=== PATIENT | female | born 1945 | race Caucasian/White ===

== ENCOUNTER 2019-05-02 10:23 | Outpatient (CLI) | payer MEDICARE ==
--- NOTE | 2019-05-02 12:17 | MRI ---
MRI BRAIN WITH AND WITHOUT CONTRAST MRI IACs WITHOUT CONTRAST: Date: 05/02/19 INDICATION: Right-sided hearing loss. No prior imaging comparison available. FINDINGS: Ventricular system is normal in size. There is no acute territorial infarction, mass effect, or midli ne shift. Minimal chronic ischemic disease of the cerebral white matter is present. Thin section heavily T2-weighted imaging, as well as postcontrast imaging performed through the CP an gle cisterns bilaterally, which reveal no evidence of mass or pathologic enhancement. There is a curv ilinear region of enhancement of the right CP angle cistern approximating porus acousticus favoring a small vascular loop. There is mild asymmetric high-riding left jugular bulb. No evidence of pathologic intra-axial enhancement. IMPRESSION: 1. No acute intracranial abnormalities. 2. No evidence of mass or pathologic enhancement of either CP angle cistern. POS: [facility]
== END 2019-05-02 10:24 | disposition home or self-care (01) ==
LOC: BICMRI 10:23
PROVIDERS: ATTEND Otolaryngology Otolaryngic Allergy
DX: H90.A31 Mixed conductive and sensorineural hearing loss, unilateral, right ear with restricted hearing on the contralateral side (principal); H90.A22 Sensorineural hearing loss, unilateral, left ear, with restricted hearing on the contralateral side; H69.83 Other specified disorders of Eustachian tube, bilateral
CPT/HCPCS: 70553; 82565

== ENCOUNTER 2019-10-10 10:00 | Emergency (ER) | payer MEDICARE ==
[2019-10-10] MEDS ORDERED: Ondansetron PF 4 MG/2 ML Vial ONE (10:18)
[2019-10-10] MEDS ORDERED: Ciprofloxacin 500 MG TAB ONE (10:18)
[2019-10-10] MEDS ORDERED: metroNIDAZOLE 500 MG/100 ML BAG ONE (10:19)
[2019-10-10 10:49] LABS: #Basophils 0.1 thou/uL (0.0-0.2); #Eosinphils 0.4 thou/uL (0.0-0.7); #Lymphocytes 2.7 thou/uL (1.20-3.40); #Monocytes 0.8 thou/uL (0.11-0.59); #Neutrophils 4.2 thou/uL (1.40-6.50); %Basophils 0.8 % (0.0-1.0); %Eosinophils 5.5 % (0.0-10.0); %Lymphocytes 32.7 % (21.0-51.0); %Monocytes 9.2 % (0.0-10.0); %Neutrophils 51.8 % (42.0-75.0); Hemoglobin 12.6 g/dL (12.0-16.0); Mean Corpuscular HGB CONC 33.4 g/dL (32.0-36.0); Mean Corpuscular Hemoglobin 30.8 pg (27.0-31.0); Mean Corpuscular Volume 92.3 fL (78.0-98.0); Mean Platelet Volume 7.2 fL (7.4-10.4); Platelet Count 313 thou/uL (130-400); Red Blood Cell (RBC) Count 4.08 mill/uL (4.20-5.40); White Blood Cell (WBC) Count 8.1 thou/uL (4.8-10.8)
[2019-10-10 11:02] LABS: ALT (SGPT) 18 U/L (8-55); AST (SGOT) 25 U/L (5-34); Albumin 4.4 g/dL (3.4-4.8); Alkaline Phosphatase 46 U/L (40-110); Anion Gap 14 mmol/L (10-20); BUN (Urea Nitrogen) 12 mg/dL (9.8-20.1); Bilirubin, Total 0.3 mg/dL (0.2-1.2); Calc. Creatinine Clearance 0 mL/min (70-130); Calcium 10.1 mg/dL (7.8-10.44); Carbon Dioxide 23 mmol/L (23-31); Chloride 105 mmol/L (98-107); Estimated GFR-MDRD 49; Globulin 3.7 g/dL (2.4-3.5); Glucose 122 mg/dL (83-110); Lipase 52 U/L (8-78); Potassium 4.6 mmol/L (3.5-5.1); Protein, Total 8.1 g/dL (6.0-8.3); Sodium 137 mmol/L (136-145)
--- NOTE | 2019-10-10 11:59 | CT ---
CT ABDOMEN AND PELVIS PERFORMED WITH IV CONTRAST ENHANCEMENT: Date: 10/10/2019 HISTORY: Abdominal pain. FINDINGS: The lung bases are clear of any infiltrates. There is fluid-filled distention of the distal esophagus . This would raise the possibility of some type of achalasia type change. The liver shows evidence fo r fatty change. No focal masses. Spleen is within normal limits. Pancreas and gallbladder regions veronica ear unremarkable. Right and left adrenal glands are normal. Right and left kidneys are normal in size. Contrast is with in both collecting systems and ureters. This was related to that there was holdup after the initial i njection there was an IV leak which had to be fixed and so some of the contrast was administered satya ier than typically seen. There is slight prominence to both the right and left ureters to the level o f the pelvic brim, at which point they tapered to a more normal caliber. I do not see any signs of an y mass. The bladder is mildly distended. There is no significant periaortic or mesenteric adenopathy. Colonic diverticulosis mainly confined to the distal descending and sigmoid colon region. No definit e signs of any diverticulitis type change. There is some minimal haziness to the fat adjacent to the sigmoid colon. I feel this is more likely chronic. No free fluid demonstrated. No pelvic lymphadenopa thy or mass. Appendix is normal. There are some prominent vessels adjacent to the ascending colon. IMPRESSION: 1. Fatty changes of liver. 2. Colonic diverticulosis without any definitive evidence for diverticulitis as discussed above. 3. Air fluid level within the distended distal esophagus. This raises the possibility of possibly so me achalasia type change. POS: [facility]
[2019-10-10] MEDS ORDERED: Iopamidol-370 76% 500 ML 1 ML ONE (15:53)
== END 2019-10-10 12:41 | disposition home or self-care (01) ==
LOC: ERS 10:00
DX: K57.32 Diverticulitis of large intestine without perforation or abscess without bleeding (principal); E11.9 Type 2 diabetes mellitus without complications; I10 Essential (primary) hypertension
CPT/HCPCS: 74177; 80053; 83690; 85025; 96361; 96365; 96375; J2405; Q9967

== ENCOUNTER 2019-11-25 13:38 | Observation (INO) | payer MEDICARE ==
--- NOTE | 2019-11-25 14:33 | CT ---
Exam: Head CT without contrast HISTORY: Memory loss. Headache. Pain. COMPARISON: none FINDINGS: Hemorrhage: No intraparenchymal hemorrhage or extra-axial hematoma. Brain parenchyma: Cortical guillaume-white matter differentiation is preserved. No mass effect or midline shift. Basilar cisterns are patent. Ventricular system: Ventricles and sulci are patent and symmetric. Calvarium: Intact. Sinuses and mastoid air cells: Adequate aeration. IMPRESSION: No acute intracranial process.
--- NOTE | 2019-11-25 14:52 | RAD ---
PORTABLE CHEST: Date: 11/25/2019 HISTORY: Altered mental status. Syncope. FINDINGS: Heart size and mediastinum are within normal limits. Lungs appear clear of any focal infiltrative pro cess. No significant bony findings. IMPRESSION: No active intrathoracic disease. POS: [facility]
[2019-11-25 15:12] LABS: #Basophils 0.1 thou/uL (0.0-0.2); #Eosinphils 0.2 thou/uL (0.0-0.7); #Monocytes 0.6 thou/uL (0.11-0.59); #Neutrophils 5.4 thou/uL (1.40-6.50); %Basophils 1.1 % (0.0-1.0); %Eosinophils 2.5 % (0.0-10.0); %Neutrophils 65.5 % (42.0-75.0); Hemoglobin 13.7 g/dL (12.0-16.0); Mean Corpuscular HGB CONC 33.2 g/dL (32.0-36.0); Mean Corpuscular Hemoglobin 30.7 pg (27.0-31.0); Mean Corpuscular Volume 92.4 fL (78.0-98.0); Mean Platelet Volume 7.8 fL (7.4-10.4); Platelet Count 336 thou/uL (130-400); RBC Distribution Width 13.2 % (11.5-14.5); Red Blood Cell (RBC) Count 4.45 mill/uL (4.20-5.40); White Blood Cell (WBC) Count 8.3 thou/uL (4.8-10.8)
[2019-11-25] MEDS ORDERED: diphenhydrAMINE 50 MG/ML VIAL ONE (15:15)
[2019-11-25] MEDS ORDERED: Metoclopramide HCl 10 MG/2 ML VIAL ONE (15:15)
[2019-11-25 15:35] LABS: ALT (SGPT) 19 U/L (8-55); AST (SGOT) 27 U/L (5-34); Albumin 4.7 g/dL (3.4-4.8); Alkaline Phosphatase 48 U/L (40-110); Anion Gap 16 mmol/L (10-20); BUN (Urea Nitrogen) 12 mg/dL (9.8-20.1); Bilirubin, Total 0.5 mg/dL (0.2-1.2); Calc. Creatinine Clearance 0 mL/min (70-130); Calcium 10.8 mg/dL (7.8-10.44); Carbon Dioxide 21 mmol/L (23-31); Chloride 101 mmol/L (98-107); Estimated GFR-MDRD 43; Globulin 3.8 g/dL (2.4-3.5); Glucose 91 mg/dL (83-110); Potassium 4.6 mmol/L (3.5-5.1); Protein, Total 8.5 g/dL (6.0-8.3); Sodium 133 mmol/L (136-145)
[2019-11-25 16:07] LABS: Bilirubin Negative (Negative); Blood, Urine Negative (Negative); Clarity Clear (Clear); Glucose, Urine (Dipstick) Normal (Negative); Leukocyte Negative Leu/uL (Negative); Nitrite Negative (Negative); Protein, Urine (Dipstick) 10 mg/dL (Neg-Trace); Urobilinogen Normal mg/dL (Less than 2)
[2019-11-25] MEDS ORDERED: Aspirin 325 MG TAB ONE (17:21)
[2019-11-25] MEDS ORDERED: D5 1/2 NS 500 ML IV SCH (18:45)
[2019-11-25] MEDS ORDERED: Acetaminophen 650 MG Suppository PR PRN (18:45)
[2019-11-25] MEDS ORDERED: Acetaminophen 325 MG TAB PO PRN (18:45)
[2019-11-25] MEDS ORDERED: Melatonin 3 MG TAB PO PRN (18:46)
[2019-11-25] MEDS ORDERED: Dextrose 50% Abboject 50 ML SYRINGE SLOW IVP PRN (18:47)
[2019-11-25] MEDS ORDERED: HumaLOG 300 UNITS/3 ML VIAL SC PRN ×2 (18:47)
[2019-11-25] MEDS ORDERED: Dextrose 5% in Water 1,000 ML IV PRN (18:47)
[2019-11-25] MEDS ORDERED: Fioricet 325/50/40 mg Tablet PO SCH (19:15)
[2019-11-25 19:32] LABS: Lactic Acid 2.2 mmol/L (0.5-2.2)
--- NOTE | 2019-11-25 20:05 | HP ---
TIME OF ASSESSMENT: 1700 hours. PRIMARY CARE PHYSICIAN: Out of town. CHIEF COMPLAINT: Confusion. HISTORY OF PRESENT ILLNESS: Ms. Umaña is a pleasant 74-year-old woman, who presented to the emergency department due to an episode of confusion. The patient apparently had a moment of confusion this morning, when she realized she could not recall phone numbers. Her family states she is usually very good with numbers. The symptoms resolved within an hour and she had no other associated symptoms. No slurred speech. No headache. No dizziness. No extremity numbness or weakness. No ataxia. She does report feeling a bit under the weather and having a reduced appetite. States she recently took care of her grand children, who were unwell with a viral illness. Denies any constitutional symptoms such as cough, runny nose, or sore throat. No chest pain or shortness of breath. No nausea, vomiting, or abdominal pain. No changes with her urine and no changes with her stools. The patient apparently had recurring confusion later in the day that lasted longer and did check her glucose on both occasions. Her glucose in the morning was 114 and in the afternoon when her symptoms recurred was 79. The family insisted she come into the Emergency Department. Since arriving to the ED, her symptoms have fully resolved. She does report a persistent aching sensation surrounding her left eye with no blurred vision or double vision. States it is 2/10 in severity and feels like a headache. Denies any history of migraines or headaches. Of note, the patient does report having chills at the moment and states that she cannot get warm despite how many blankets have been given in the ED. Her temp was 98.8 and she states this is high for her. She usually runs in the 97 range. ED COURSE: In the Emergency Department, the patient underwent an EKG that showed a normal sinus rhythm with a heart rate of 83, complete right bundle-branch block. She was given Benadryl, metoclopramide, and aspirin as well as 500 mL of normal saline. Neuro exam was unremarkable. She did undergo a CT head imaging showing no acute intracranial process. She had a chest x-ray done showing no active intrathoracic disease. A urinalysis showed trace ketones and was otherwise negative. Her labs showed a normal full blood count with a low sodium of 133. Potassium 4.6, anion gap 16, BUN 12, creatinine 1.24, and GFR 43. Renal function is elevated from baseline. Calcium was 10.8. LFTs unremarkable. Troponin negative. PAST MEDICAL HISTORY: 1. Type 2 diabetes mellitus. 2. Hypertension. 3. Hypothyroidism. 4. Lupus. 5. Diverticulitis. PAST SURGICAL HISTORY: Tubal ligation. SOCIAL HISTORY: The patient lives at home with her grandson. Denies any tobacco use, alcohol consumption, or illicit drug use. ALLERGIES: 1. BACTRIM. 2. KEFLEX. CURRENT MEDICATIONS: 1. Janumet. 2. Benazepril. 3. Glipizide. 4. Levothyroxine. PHYSICAL EXAMINATION: GENERAL: The patient appears well developed, well nourished, is in no acute distress. VITAL SIGNS: Temperature 98.8, pulse 96, blood pressure 123/66, respirations 18, and O2 saturation 98% on room on room air. HEENT: Normocephalic and atraumatic. Pupils are equal, round, and reactive to light. Extraocular movements intact. Oropharynx is clear. NECK: Supple. LUNGS: Clear to auscultation bilaterally without any wheezes, rales, or rhonchi. CARDIAC: Regular rate and rhythm. ABDOMEN: Soft, nontender, and nondistended. Normoactive bowel sounds present. No guarding or rigidity. No renal angle tenderness. EXTREMITIES: No lower leg swelling or edema. No calf tenderness. Peripheral pulses strong and equal bilaterally. SKIN: Warm and dry. NEUROLOGIC: Alert and oriented x3. Facial movements normal. Facial sensation intact. Power 5/5 in all limbs. No neuro deficits on exam. INVESTIGATIONS: As mentioned above in HPI. IMPRESSION AND PLAN: Ms. Umaña is a pleasant 74-year-old woman, who presents with complaints of recurring confusion, chills, and reduced appetite. She is being admitted for management of the following. 1. Transient ischemic attack workup. The patient's CT imaging of the head has showed no intracranial abnormalities. She had no associated neuro deficits on exam. The patient was told she might get an MRI. It is unlikely her symptoms are due to cerebrovascular accident/transient ischemic attack, but given the patient and family's concerns, we will place a consultation to Neuro and if any further imaging advised such as MRI, this can be ordered. The patient is back to baseline at present and is alert and oriented x4. Able to recall multiple phone numbers and address. We will check a lipid panel in the morning. We will continue NIH testing every shift. We will complete a dysphagia screening at bedside. 2. Dehydration. The patient states her appetite has been reduced since she has been feeling slightly well and recently exposed to a viral illness by her grand children. We will provide gentle hydration and monitor renal function. We will obtain orthostatic blood pressures. 3. Ocular migraine. The patient reports some discomfort around the left eye with no visual disturbances. It is possible she is experiencing an ocular migraine, perhaps exacerbated by dehydration. Discomfort is currently 2/10 in severity. We will give a dose of Fioricet. 4. Hypercalcemia. Calcium level mildly elevated at 10.8. We will reassess after fluids given. We will check magnesium as well. 5. Diabetes mellitus. The patient with reduced oral intake. Therefore, we will hold her regular medications. We will monitor glucose and cover with a sliding scale. Fluids will consist of D5 half-normal saline 1 L at 50 mL an hour. 6. Hypertension. Monitor blood pressure and resume home medications once verified. 7. Gastrointestinal prophylaxis with famotidine. 8. Deep venous thrombosis prophylaxis. Physical Therapy/Occupational Therapy consulted. 9. Code status full. Surrogate decision maker is her son, Nirav Umaña. Case was discussed with attending, who agrees with plan of care as described above. Job ID: [id number]
[2019-11-25] MEDS ORDERED: Famotidine/PF 20 mg/2ml Vial SLOW IVP SCH (21:00)
[2019-11-25] MEDS ORDERED: Dextrose 5 %-0.45 % NaCl 1,000 ML IV SCH (22:15)
[2019-11-25 23:51] VITALS: BMI 33.9
[2019-11-26 06:23] LABS: #Eosinphils 0.4 thou/uL (0.0-0.7); #Lymphocytes 2.3 thou/uL (1.20-3.40); #Monocytes 0.7 thou/uL (0.11-0.59); #Neutrophils 2.8 thou/uL (1.40-6.50); %Basophils 0.6 % (0.0-1.0); %Eosinophils 6.2 % (0.0-10.0); %Lymphocytes 37.8 % (21.0-51.0); %Monocytes 10.4 % (0.0-10.0); Hemoglobin 12.5 g/dL (12.0-16.0); Mean Corpuscular HGB CONC 33.4 g/dL (32.0-36.0); Mean Corpuscular Volume 92.8 fL (78.0-98.0); Mean Platelet Volume 7.7 fL (7.4-10.4); Platelet Count 276 thou/uL (130-400); RBC Distribution Width 13.2 % (11.5-14.5); Red Blood Cell (RBC) Count 4.02 mill/uL (4.20-5.40); White Blood Cell (WBC) Count 6.2 thou/uL (4.8-10.8)
[2019-11-26 06:42] LABS: Anion Gap 13 mmol/L (10-20); BUN (Urea Nitrogen) 11 mg/dL (9.8-20.1); Calc. Creatinine Clearance 59 mL/min (70-130); Calcium 9.7 mg/dL (7.8-10.44); Carbon Dioxide 21 mmol/L (23-31); Chloride 106 mmol/L (98-107); Estimated GFR-MDRD 53; Glucose 98 mg/dL (83-110); Sodium 136 mmol/L (136-145)
[2019-11-26] MEDS ORDERED: Aspirin 81 mg Enteric Coated Tablet PO SCH (09:00)
--- NOTE | 2019-11-26 10:30 | CON ---
DATE OF CONSULTATION: 11/26/2019 CONSULTING PHYSICIAN: Hospitalist Service. IMPRESSION: 1. Transient confusion of uncertain etiology. 2. Diabetes. 3. Hypertension. PLAN: 1. Begin aspirin and a statin. 2. MRI of the brain. 3. The patient can be discharged home. HISTORY OF PRESENT ILLNESS: Ms. Umaña is a 74-year-old white female with history of hypertension and diabetes. She had 2 brief episodes, where she could not recall familiar phone numbers. There was no other associated symptom other than some low-grade headache. Her CT of the brain was negative. Her lab work was all unremarkable. Her blood sugars were in normal range during these episodes. She denies any other past neurologic history. PAST HISTORY: As listed above. ALLERGIES: CEPHALEXIN, SULFA. SOCIAL HISTORY: No tobacco use. FAMILY HISTORY: Noncontributory. MEDICATIONS: List reviewed. REVIEW OF SYSTEMS: Ten-system review of systems is otherwise negative. PHYSICAL EXAMINATION: VITAL SIGNS: Blood pressure 144/77, pulse 79, respirations 18, and temperature 97.9. HEENT: Pupils are equal and reactive. Conjunctivae are clear. Oropharynx clear. NECK: Supple. EXTREMITIES: No cyanosis or edema. NEUROLOGIC: She is alert and appropriate. Her speech is fluent and clear. She has no focal deficits. LABORATORY DATA: EKG shows a sinus rhythm. SUMMARY: This is a 74-year-old woman with some vascular risk factors, who presents with a very vague transient difficulty recalling phone numbers. Given the brevity of the events, I do not think we are going to see anything on MRI. I agree with continuing aspirin and a statin for good measure. Job ID: [id number]
[2019-11-26 11:44] VITALS: BP 109/54; TEMP 99.3
--- NOTE | 2019-11-26 11:47 | ULT ---
EXAM: Carotid vascular duplex with color and spectral Doppler imaging: HISTORY: TIA COMPARISON: None FINDINGS: Very mild intimal thickening Right ICA: PSV: 56 cm/s EDV: 16 cm/s ICA/CCA ratio: 0.8 Left ICA: PSV: 63 cm/s EDV: 15.6 cm/s ICA/CCA ratio: 0.7 Antegrade flow is seen in both vertebral arteries.. IMPRESSION: No evidence for hemodynamically significant ICA stenosis Mild intimal thickening evidence for carotid artery atherosclerotic disease.
--- NOTE | 2019-11-26 12:24 | MRI ---
EXAM: Brain MRI Without contrast: HISTORY: TIA, memory loss, headache COMPARISON: None FINDINGS: Multiplanar multisequence MRI examination of the brain is performed. The ventricles are within normal limits of size shape and position. No mass or midline shift. No evidence for intra or extra-axial hemorrhage. No evidence for abnormal restricted diffusion. No evidence for acute infarct. Normal-appearing flow voids are noted. The extracranial soft tissues and calvarial marrow signal appear within normal limits. Visualized sinuses and mastoids are unremarkable. IMPRESSION: No significant acute intracranial process. No mass or bleed. No acute infarct.
--- NOTE | 2019-11-26 12:54 | PDOC.HOSPP ---
- Subjective Encounter Date: 11/26/19 Encounter Time: 12:52 Subjective: Ms. Umaña was seen today in follow-up of altered mental status. She says her symptoms have completely resolved. No new complaints. - Objective Vital Signs & Weight: Vital Signs (12 hours) Temp Pulse Resp BP Pulse Ox 11/26/19 11:43 99.3 F 72 21 H 109/54 L 95 11/26/19 08:00 98.0 F 78 20 117/60 99 11/26/19 04:00 98.2 F 63 18 124/79 95 Weight Weight 168 lb I&O: 11/25/19 11/26/19 11/27/19 06:59 06:59 06:59 Intake Total 360 948 Balance 360 948 Result Diagrams: 11/26/19 05:07 11/26/19 05:07 Additional Labs: Accuchecks 11/26/19 11/26/19 11/25/19 11:12 06:17 14:03 POC Glucose 146 H 108 79 Hospitalist ROS - Medication Medications: Active Medications Generic Name Dose Route Start Last Admin Trade Name Freq PRN Reason Stop Dose Admin Acetaminophen 650 mg 11/25/19 18:45 11/26/19 08:59 Tylenol PO 650 mg Q4H PRN Administration Headache/Fever/Mild Pain (1-3) Aspirin 81 mg 11/26/19 09:00 11/26/19 08:59 Ecotrin PO 81 mg DAILY CASSY Administration Dextrose/Sodium Chloride 1,000 mls @ 50 mls/hr 11/25/19 22:15 11/25/19 22:12 D5 1/2 Ns IV 1,000 mls .Q20H CASSY Administration - Exam Eye: PERRL, anicteric sclera Heart: RRR, no murmur, no gallops, no rubs, normal peripheral pulses Respiratory: CTAB, no wheezes, no rales, no ronchi, normal chest expansion, no tachypnea, normal percussion Gastrointestinal: soft, non-tender, non-distended, normal bowel sounds, no palpable masses, no hepatomegaly Extremities: no cyanosis, no edema Hosp A/P (1) TIA (transient ischemic attack) Code(s): G45.9 - TRANSIENT CEREBRAL ISCHEMIC ATTACK, UNSPECIFIED Status: Acute (2) Diabetes mellitus type 2 in nonobese Code(s): E11.9 - TYPE 2 DIABETES MELLITUS WITHOUT COMPLICATIONS Status: Chronic - Plan * TIA- stable for discharge * Will add a ow dose statin and aspirin * Stable for discharge home.
[2019-11-26 13:17] LABS: Cardiac Risk 3.8 (Less than 4.5)
[2019-11-26] MEDS ORDERED: Famotidine/PF 20 mg/2ml Vial SLOW IVP SCH (21:00)
--- NOTE | 2019-11-28 10:47 | DIS ---
DATE OF ADMISSION: 11/25/2019 DATE OF DISCHARGE: 11/26/2019 PRIMARY CARE PHYSICIAN: Dr. Thomas, [facility]. DISCHARGE DISPOSITION: Home. DISCHARGE DIAGNOSES: 1. Transient ischemic attack. 2. Diabetes mellitus type 2. 3. Possible hypoglycemia. 4. Hypertension. 5. Hypothyroidism. 6. Lupus. 7. Diverticulitis. DISCHARGE MEDICATIONS: Include 1. Aspirin 81 mg daily. 2. Pravastatin 20 mg at bedtime. 3. Metformin. 4. Janumet mg twice a day. 5. Levothyroxine 75 mcg p.o. daily. 6. Glipizide 2.5 mg 1/2 tablet daily. 7. Lotensin 20 mg a day. IMAGING STUDIES: During the hospital stay, the patient had a CT scan of the brain showing no acute intracranial process. Had an MRI of the brain, also negative for any mass or infarct. Also, had bilateral carotid Dopplers showing no evidence of any significant flow-limiting disease. CODE STATUS: Full code. ALLERGIES: TO CEPHALEXIN, SULFA, AND TRIMETHOPRIM. HOSPITAL COURSE: Ms. Umaña is a pleasant 74-year-old female, who was admitted to the hospital after having difficulty recognizing numbers. This was concerning for possible TIA. She was brought in the hospital and had an MRI, which was negative, and also carotid Dopplers. She had not been taking a statin recently and for this reason, pravastatin will be added. She said she had difficulty with Livalo in the past. Also, it was noted that she could potentially have been hypoglycemic. Her son says that her blood sugar was in the low normal region when this happened around in the 70s. This was after she had eaten a Pop-Tart in which it would be expected for blood sugar to be much higher. Therefore, she was instructed to monitor her blood sugars and try to eat something with more protein in the mornings if she is hurried. She will also need to follow up with her primary care physician in approximately 1 week. Job ID: [id number]
--- NOTE | 2019-11-28 14:25 | DIS ---
DATE OF ADMISSION: 11/25/2019 DATE OF DISCHARGE: 11/26/2019 PRIMARY CARE PHYSICIAN: Dr. Thomas. DISCHARGE DISPOSITION: Home. PRIMARY DISCHARGE DIAGNOSES: 1. Probable transient ischemic attack. 2. Diabetes mellitus. 3. Hypothyroidism. 4. History of lupus. DISCHARGE MEDICATIONS: 1. Aspirin 81 mg p.o. daily. 2. Pravastatin 20 mg at bedtime. 3. Januvia. 4. Metformin mg twice a day. 5. Levothyroxine 75 mcg p.o. daily. 6. Glucotrol daily. 7. Lotensin 20 mg daily. IMAGING DURING HOSPITAL STAY: The patient had a CT scan of the brain showing no acute process. Also, had an MRI of the brain with no acute intracranial process. No bleed or infarct as well as bilateral carotid Dopplers, which were negative for any hemodynamically significant stenosis. CODE STATUS: Full code. ALLERGIES: TO CEPHALEXIN, SULFAMETHOXAZOLE, AND BACTRIM. HOSPITAL COURSE: Ms. Umaña is a pleasant 74-year-old female, who was admitted or placed in observation after she had an episode of difficulty with word finding. It was very transient and short-lived. However, she is very good with numbers and as a result, there was considerable concern. She came to the ER for evaluation, where she was placed in observation. She was seen by Neurology the following day. MRI was ordered, which was negative and also carotid Dopplers were also done showing no flow-limiting disease. It is possible that this was either TIA or could have been related to an episode of hypoglycemia. She says that her blood sugar was in the lower normal range when it happens, but this was after she had eaten a Pop-Tart. It has been recommended that she have a little bit of protein in the morning with breakfast and she a low-dose aspirin and statin will be added. She can follow up with Dr. Thomas for the echocardiogram and also close outpatient followup in general. Job ID: [id number]
== END 2019-11-26 14:59 | disposition home or self-care (01) ==
LOC: ERS 13:38 → 2SE 19:30
PROVIDERS: ADMIT Internal Medicine; ATTEND Internal Medicine
DX: G45.9 Transient cerebral ischemic attack, unspecified (principal); E11.9 Type 2 diabetes mellitus without complications; I10 Essential (primary) hypertension; E03.9 Hypothyroidism, unspecified; M32.9 Systemic lupus erythematosus, unspecified; K57.92 Diverticulitis of intestine, part unspecified, without perforation or abscess without bleeding; I45.10 Unspecified right bundle-branch block; E86.0 Dehydration; G43.809 Other migraine, not intractable, without status migrainosus; E83.52 Hypercalcemia; Z79.84 Long term (current) use of oral hypoglycemic drugs; Z79.899 Other long term (current) drug therapy; Z88.1 Allergy status to other antibiotic agents; Z88.2 Allergy status to sulfonamides
CPT/HCPCS: 36415; 36416; 70450; 70551; 71045; 80048; 80053; 80061; 81003; 83605; 83735; 84145; 84443; 84484; 85025; 87086; 87804; 93005; 93880; 96361; 96365; 96375; G0378; J1200; J2765; S0028

== ENCOUNTER 2020-12-08 13:53 | Inpatient (IN) | payer MEDICARE ==
[~2020-12-08 13:53] MED LIST: Iopamidol-370 76% 500 ML 1 ML ONE
[2020-12-08] MEDS ORDERED: Nitroglycerin 2% Ointment 1 INCH/1 GM Packet ONE (14:17)
[2020-12-08 14:29] LABS: #Eosinphils 0.3 thou/uL (0.0-0.7); #Lymphocytes 2.5 thou/uL (1.20-3.40); #Monocytes 0.7 thou/uL (0.11-0.59); #Neutrophils 5.4 thou/uL (1.40-6.50); %Basophils 0.4 % (0.0-1.0); %Eosinophils 3.7 % (0.0-10.0); %Lymphocytes 28.1 % (21.0-51.0); %Monocytes 7.9 % (0.0-10.0); Hemoglobin 13.8 g/dL (12.0-16.0); Mean Corpuscular HGB CONC 33.6 g/dL (32.0-36.0); Mean Corpuscular Hemoglobin 34.2 pg (27.0-31.0); Mean Platelet Volume 7.1 fL (7.4-10.4); Platelet Count 349 thou/uL (130-400); RBC Distribution Width 13.6 % (11.5-14.5); Red Blood Cell (RBC) Count 4.04 mill/uL (4.20-5.40)
[2020-12-08 15:19] LABS: ALT (SGPT) 12 U/L (8-55); AST (SGOT) 21 U/L (5-34); Albumin 4.9 g/dL (3.4-4.8); Alkaline Phosphatase 52 U/L (40-110); Anion Gap 21 mmol/L (10-20); BUN (Urea Nitrogen) 13 mg/dL (9.8-20.1); Bilirubin, Total 0.4 mg/dL (0.2-1.2); Calc. Creatinine Clearance 0 mL/min (70-130); Calcium 10.4 mg/dL (7.8-10.44); Carbon Dioxide 17 mmol/L (23-31); Chloride 103 mmol/L (98-107); Globulin 3.8 g/dL (2.4-3.5); Glucose 125 mg/dL (83-110); Lipase 71 U/L (8-78); Magnesium 1.3 mg/dL (1.6-2.6); Potassium 4.9 mmol/L (3.5-5.1); Protein, Total 8.7 g/dL (5.8-8.1); Sodium 136 mmol/L (136-145)
[2020-12-08 15:24] LABS: Bacteria/HPF None Seen HPF (None Seen); Bilirubin Negative (Negative); Blood, Urine 1+ (Negative); Clarity Clear (Clear); Glucose, Urine (Dipstick) Normal (Negative); Ketone, Urine Negative (Negative); Leukocyte Negative Leu/uL (Negative); Nitrite Negative (Negative); Protein, Urine (Dipstick) 100 mg/dL (Neg-Trace); RBC/HPF 0-3 HPF (0-3); Specific Gravity, Urine 1.011 (1.002-1.036); Squamous Epithelial None Seen HPF (0-3); Urobilinogen Normal mg/dL (Less than 2); WBC/HPF 0-3 HPF (0-3); pH, Urine 5.5 (5.0-9.0)
[2020-12-08 15:48] LABS: CKMB 6.9 ng/mL (0-6.6)
[2020-12-08] MEDS ORDERED: Magnesium 2 GM/50 ML BAG (IN WATER) ONE (15:52)
[2020-12-08] MEDS ORDERED: Magnesium 2 GM/50 ML 2 GM in Premix Bag 1 BAG IVPB SCH (16:00)
[2020-12-08] MEDS ORDERED: Ondansetron PF 4 MG/2 ML Vial ONE (16:01)
[2020-12-08] MEDS ORDERED: Morphine 2 MG/ML VIAL ONE (16:01)
[2020-12-08] MEDS ORDERED: Fentanyl 100 MCG/2 ML VIAL ONE (16:25)
[2020-12-08] MEDS ORDERED: Enoxaparin Sodium 80 MG/0.8 ML SYRINGE SC SCH (16:30)
[2020-12-08] MEDS ORDERED: Enoxaparin Sodium 80 MG/0.8 ML SYRINGE ONE (16:56)
[2020-12-08] MEDS ORDERED: Dextrose 5% in Water 1,000 ML IV PRN (17:34)
[2020-12-08] MEDS ORDERED: HumaLOG 300 UNITS/3 ML VIAL SC PRN (17:34)
[2020-12-08] MEDS ORDERED: Dextrose 50% Abboject 50 ML SYRINGE SLOW IVP PRN (17:34)
[2020-12-08] MEDS ORDERED: Morphine 2 MG/ML VIAL SLOW IVP PRN (17:43)
[2020-12-08 18:17] LABS: Troponin I 2.507 ng/mL (< 0.028)
[2020-12-08 20:55] LABS: Critical Call Chem Troponin I RESULT DECREASING
[2020-12-08 21:18] VITALS: BMI 32.2
[2020-12-09 02:09] LABS: SARS-CoV-2 PCR by NAA Not Detected (NotDetected)
[2020-12-09] MEDS ORDERED: Nitroglycerin 0.4 MG TAB (25 Tab Bottle) SL PRN (04:47)
[2020-12-09 04:52] LABS: #Basophils 0.1 thou/uL (0.0-0.2); #Eosinphils 0.3 thou/uL (0.0-0.7); #Monocytes 0.8 thou/uL (0.11-0.59); %Basophils 1.1 % (0.0-1.0); %Eosinophils 3.7 % (0.0-10.0); %Lymphocytes 42.9 % (21.0-51.0); %Monocytes 9.1 % (0.0-10.0); %Neutrophils 43.3 % (42.0-75.0); Hemoglobin 12.1 g/dL (12.0-16.0); Mean Corpuscular HGB CONC 33.7 g/dL (32.0-36.0); Mean Corpuscular Hemoglobin 34.1 pg (27.0-31.0); Mean Platelet Volume 7.2 fL (7.4-10.4); Platelet Count 305 thou/uL (130-400); RBC Distribution Width 13.6 % (11.5-14.5); Red Blood Cell (RBC) Count 3.56 mill/uL (4.20-5.40); White Blood Cell (WBC) Count 9.2 thou/uL (4.8-10.8)
[2020-12-09 05:17] LABS: Troponin I 2.638 ng/mL (< 0.028)
[2020-12-09] MEDS ORDERED: Enoxaparin Sodium 40 MG/0.4 ML SYRINGE SC ONE (05:34)
[2020-12-09 06:01] LABS: Anion Gap 17 mmol/L (10-20); BUN (Urea Nitrogen) 13 mg/dL (9.8-20.1); Calc. Creatinine Clearance 54 mL/min (70-130); Calcium 9.5 mg/dL (7.8-10.44); Carbon Dioxide 18 mmol/L (23-31); Cardiac Risk 3.9 (Less than 4.5); Chloride 107 mmol/L (98-107); Cholesterol 193 mg/dl (< 200 Desired); Glucose 129 mg/dL (83-110); HDL Cholesterol 49 mg/dL (>60 Neg Risk); LDL Cholesterol, Calculated 88 mg/dL; Magnesium 1.8 mg/dL (1.6-2.6); Potassium 5.1 mmol/L (3.5-5.1); Sodium 137 mmol/L (136-145); Triglycerides 281 mg/dL (Less than 150)
[2020-12-09] MEDS: Aspirin 325 mg Enteric Coated Tablet PO SCH (08:04)
[2020-12-09] MEDS ORDERED: Lisinopril 10 MG TAB PO SCH (09:00)
[2020-12-09] MEDS: Famotidine 20 MG TAB PO SCH (09:50)
[2020-12-09] MEDS ORDERED: Communication Order-Pharmacy FS SCH (10:00)
[2020-12-09] MEDS ORDERED: Enoxaparin Sodium 60 MG/0.6 ML SYRINGE SC SCH (14:00)
[2020-12-09] MEDS: Nitroglycerin 2% Ointment 1 INCH/1 GM Packet TOP SCH (17:01)
[2020-12-09] MEDS: Metoprolol Tartrate 25 MG TAB PO SCH (20:42)
[2020-12-09] MEDS ORDERED: Atorvastatin Calcium 40 MG TAB PO SCH (21:00)
[2020-12-10] MEDS: Nitroglycerin 2% Ointment 1 INCH/1 GM Packet TOP SCH ×4 (00:15→18:32)
[2020-12-10] MEDS: Metoprolol Tartrate 25 MG TAB PO SCH ×2 (05:56→21:53)
[2020-12-10] MEDS: Levothyroxine Sodium 75 MCG TAB PO SCH (05:57)
[2020-12-10] MEDS: Aspirin 325 mg Enteric Coated Tablet PO SCH (05:57)
[2020-12-10] MEDS: Fenofibrate 48 MG TAB PO SCH (05:57)
[2020-12-10] MEDS: Famotidine 20 MG TAB PO SCH (05:57)
[2020-12-10] MEDS ORDERED: Midazolam HCl 2 mg/2 ml Vial ONE (07:07)
[2020-12-10] MEDS ORDERED: Fentanyl 100 MCG/2 ML VIAL ONE (07:07)
[2020-12-10] MEDS ORDERED: Nitroglycerin 100MG/250ML BOT 250 ML ONE (07:22)
[2020-12-10] MEDS ORDERED: Adenosine 6 MG/2 ML VIAL ONE (07:22)
[2020-12-10] MEDS ORDERED: Verapamil 5 MG/2 ML VIAL ONE (07:22)
[2020-12-10] MEDS ORDERED: Heparin 10,000 UNITS/ 10 ML VIAL ONE (07:38)
[2020-12-10] MEDS ORDERED: Acetaminophen/Codeine 30-300mg Tablet PO PRN (07:52)
[2020-12-10] MEDS ORDERED: Milk Of Magnesia 30 ML UDCUP PO PRN (07:52)
[2020-12-10] MEDS ORDERED: traMADol HCl 50 MG TAB PO PRN (07:52)
[2020-12-10] MEDS ORDERED: Zolpidem Tartrate 5 MG TAB PO PRN (07:52)
[2020-12-10] MEDS ORDERED: Sodium Chloride 0.9% 1,000 ML IV SCH (08:00)
[2020-12-10] MEDS ORDERED: Clopidogrel Bisulfate 300 MG TAB ONE (08:07)
[2020-12-10] MEDS: Aspirin Chewable 81 MG TAB PO SCH (11:44)
[2020-12-10] MEDS ORDERED: Iopamidol 370 76% 100 ML VIAL ONE (11:44)
[2020-12-10] MEDS ORDERED: Iopamidol 370 76% 50 ML VIAL FS ONE (11:44)
[2020-12-10] MEDS: Clopidogrel Bisulfate 75 MG TAB PO SCH (11:44)
[2020-12-10] MEDS ORDERED: Lorazepam 2 MG/ML VIAL ONE (16:09)
[2020-12-10] MEDS ORDERED: Lorazepam 2 MG/ML VIAL SLOW IVP PRN (16:10)
[2020-12-10 20:23] LABS: #Basophils 0.1 thou/uL (0.0-0.2); #Lymphocytes 1.8 thou/uL (1.20-3.40); #Monocytes 0.9 thou/uL (0.11-0.59); #Neutrophils 7.8 thou/uL (1.40-6.50); %Basophils 1.1 % (0.0-1.0); %Eosinophils 0.4 % (0.0-10.0); %Lymphocytes 17.2 % (21.0-51.0); %Monocytes 8.1 % (0.0-10.0); %Neutrophils 73.3 % (42.0-75.0); Hemoglobin 12.6 g/dL (12.0-16.0); Mean Corpuscular HGB CONC 32.4 g/dL (32.0-36.0); Mean Corpuscular Hemoglobin 32.8 pg (27.0-31.0); Mean Platelet Volume 7.1 fL (7.4-10.4); Platelet Count 311 thou/uL (130-400); RBC Distribution Width 13.6 % (11.5-14.5); Red Blood Cell (RBC) Count 3.83 mill/uL (4.20-5.40); White Blood Cell (WBC) Count 10.6 thou/uL (4.8-10.8)
[2020-12-10 20:44] LABS: ALT (SGPT) 10 U/L (8-55); AST (SGOT) 23 U/L (5-34); Albumin 4.1 g/dL (3.4-4.8); Alkaline Phosphatase 46 U/L (40-110); Anion Gap 19 mmol/L (10-20); BUN (Urea Nitrogen) 7 mg/dL (9.8-20.1); Bilirubin, Total 0.4 mg/dL (0.2-1.2); Calc. Creatinine Clearance 108 mL/min (70-130); Calcium 9.6 mg/dL (7.8-10.44); Carbon Dioxide 17 mmol/L (23-31); Chloride 102 mmol/L (98-107); Globulin 3.6 g/dL (2.4-3.5); Glucose 165 mg/dL (83-110); Magnesium 1.1 mg/dL (1.6-2.6); Potassium 4.5 mmol/L (3.5-5.1); Protein, Total 7.7 g/dL (5.8-8.1); Sodium 133 mmol/L (136-145)
[2020-12-10] MEDS ORDERED: diphenhydrAMINE 50 MG/ML VIAL IVP SCH (20:45)
[2020-12-10 21:18] LABS: Bacteria/HPF None Seen HPF (None Seen); Bilirubin Negative (Negative); Blood, Urine Trace (Negative); Clarity Clear (Clear); Glucose, Urine (Dipstick) 50 mg/dL (Negative); Ketone, Urine Trace mg/dL (Negative); Leukocyte Negative Leu/uL (Negative); Nitrite Negative (Negative); Protein, Urine (Dipstick) 70 mg/dL (Neg-Trace); RBC/HPF 0-3 HPF (0-3); Specific Gravity, Urine 1.022 (1.002-1.036); Squamous Epithelial None Seen HPF (0-3); Urobilinogen Normal mg/dL (Less than 2); WBC/HPF 0-3 HPF (0-3); pH, Urine 6.5 (5.0-9.0)
[2020-12-10 21:20] LABS: Urine Culture Reflex No No
[2020-12-10] MEDS: Atorvastatin Calcium 40 MG TAB PO SCH (21:52)
[2020-12-11] MEDS: Nitroglycerin 2% Ointment 1 INCH/1 GM Packet TOP SCH ×5 (00:02→23:45)
[2020-12-11] MEDS ORDERED: Acetaminophen 650 MG Suppository PR PRN (04:06)
[2020-12-11] MEDS: Piperacillin/Tazobactam 3.375 GM in Sodium Chloride 0.9% 100 ML IVPB SCH ×4 (04:24→23:45)
[2020-12-11 04:45] LABS: #Monocytes 1.1 thou/uL (0.11-0.59); #Neutrophils 8.2 thou/uL (1.40-6.50); %Basophils 0.2 % (0.0-1.0); %Eosinophils 0.1 % (0.0-10.0); %Lymphocytes 17.3 % (21.0-51.0); %Monocytes 9.6 % (0.0-10.0); %Neutrophils 72.7 % (42.0-75.0); Hemoglobin 12.6 g/dL (12.0-16.0); Mean Corpuscular HGB CONC 34.3 g/dL (32.0-36.0); Mean Corpuscular Hemoglobin 34.4 pg (27.0-31.0); Mean Platelet Volume 7.2 fL (7.4-10.4); Platelet Count 306 thou/uL (130-400); RBC Distribution Width 13.6 % (11.5-14.5); Red Blood Cell (RBC) Count 3.68 mill/uL (4.20-5.40); White Blood Cell (WBC) Count 11.3 thou/uL (4.8-10.8)
[2020-12-11] MEDS: Vancomycin 1 GM in Premix Bag 1 BAG IVPB SCH ×2 (05:07→16:20)
[2020-12-11] MEDS: Levothyroxine Sodium 75 MCG TAB PO SCH ×2 (05:09→08:39)
[2020-12-11 05:13] LABS: ALT (SGPT) 11 U/L (8-55); AST (SGOT) 26 U/L (5-34); Albumin 4.2 g/dL (3.4-4.8); Alkaline Phosphatase 37 U/L (40-110); Anion Gap 19 mmol/L (10-20); BUN (Urea Nitrogen) 12 mg/dL (9.8-20.1); Bilirubin, Total 0.6 mg/dL (0.2-1.2); Calc. Creatinine Clearance 48 mL/min (70-130); Calcium 9.8 mg/dL (7.8-10.44); Carbon Dioxide 17 mmol/L (23-31); Chloride 99 mmol/L (98-107); Globulin 3.8 g/dL (2.4-3.5); Glucose 177 mg/dL (83-110); Potassium 4.2 mmol/L (3.5-5.1); Sodium 131 mmol/L (136-145)
[2020-12-11] MEDS: Clopidogrel Bisulfate 75 MG TAB PO SCH (08:31)
[2020-12-11] MEDS: Aspirin Chewable 81 MG TAB PO SCH (08:31)
[2020-12-11] MEDS: Metoprolol Tartrate 25 MG TAB PO SCH ×2 (08:31→21:25)
[2020-12-11] MEDS: Fenofibrate 48 MG TAB PO SCH (08:31)
[2020-12-11] MEDS: Famotidine 20 MG TAB PO SCH (08:32)
[2020-12-11] MEDS ORDERED: Lisinopril 5 MG TAB PO SCH (09:00)
[2020-12-11] MEDS ORDERED: Sodium Chloride 0.9% 1,000 ML IV SCH (09:15)
[2020-12-11 09:44] LABS: Hemoglobin A1c 5.4 % (4.0-6.0)
[2020-12-11 10:24] LABS: Thyroid Stimulating Hormone 0.9327 uIU/mL (0.35-4.94)
[2020-12-11 11:00] LABS: Bilirubin Small (Negative); Blood, Urine Large (Negative); Glucose, Urine (Dipstick) Negative (Negative); Ketone, Urine Trace mg/dL (Negative); Leukocyte Negative (Negative); Nitrite Negative (Negative); Protein, Urine (Dipstick) > or equal to 300 mg/dL (Neg-Trace); Urobilinogen 0.2 mg/dL (Less than 2); pH, Urine 5.5 (5.0-9.0)
[2020-12-11 11:05] LABS: Clarity Cloudy (Clear)
[2020-12-11 11:06] LABS: Specific Gravity, Urine 1.035 (1.002-1.036)
[2020-12-11 11:08] LABS: Bacteria/HPF 1+ HPF (None Seen); WBC/HPF 0-3 HPF (0-3)
[2020-12-11 12:54] LABS: Creatinine, Urine 306.56 mg/dL (47-110)
[2020-12-11] MEDS ORDERED: hydrALAZINE 20 MG/ML VIAL SLOW IVP PRN (20:44)
[2020-12-11] MEDS: Atorvastatin Calcium 40 MG TAB PO SCH (21:25)
[2020-12-12] MEDS: Vancomycin 1 GM in Premix Bag 1 BAG IVPB SCH (04:19)
[2020-12-12] MEDS: Piperacillin/Tazobactam 3.375 GM in Sodium Chloride 0.9% 100 ML IVPB SCH ×2 (05:38→11:05)
[2020-12-12] MEDS: Nitroglycerin 2% Ointment 1 INCH/1 GM Packet TOP SCH ×4 (05:39→20:49)
[2020-12-12] MEDS: Levothyroxine Sodium 75 MCG TAB PO SCH (05:39)
[2020-12-12] MEDS: Cyanocobalamin (Vitamin B-12) 1,000 MCG TAB PO SCH (09:01)
[2020-12-12] MEDS: Cholecalciferol 1,000 UNITS (25 MCG) TAB PO SCH (09:01)
[2020-12-12] MEDS: Aspirin Chewable 81 MG TAB PO SCH (09:01)
[2020-12-12] MEDS: Clopidogrel Bisulfate 75 MG TAB PO SCH (09:01)
[2020-12-12] MEDS: Fenofibrate 48 MG TAB PO SCH (09:01)
[2020-12-12] MEDS: Famotidine 20 MG TAB PO SCH (09:01)
[2020-12-12] MEDS: Metoprolol Tartrate 25 MG TAB PO SCH ×2 (09:02→20:48)
[2020-12-12 09:53] LABS: #Basophils 0.1 thou/uL (0.0-0.2); #Eosinphils 0.2 thou/uL (0.0-0.7); #Lymphocytes 2.3 thou/uL (1.20-3.40); #Monocytes 1.2 thou/uL (0.11-0.59); %Basophils 0.6 % (0.0-1.0); %Lymphocytes 26.4 % (21.0-51.0); %Monocytes 13.3 % (0.0-10.0); %Neutrophils 57.6 % (42.0-75.0); Hemoglobin 12.4 g/dL (12.0-16.0); Mean Corpuscular HGB CONC 33.3 g/dL (32.0-36.0); Mean Corpuscular Hemoglobin 33.6 pg (27.0-31.0); Mean Platelet Volume 7.2 fL (7.4-10.4); Platelet Count 245 thou/uL (130-400); RBC Distribution Width 13.7 % (11.5-14.5); Red Blood Cell (RBC) Count 3.69 mill/uL (4.20-5.40); White Blood Cell (WBC) Count 8.7 thou/uL (4.8-10.8)
[2020-12-12 10:12] LABS: Anion Gap 17 mmol/L (10-20); BUN (Urea Nitrogen) 19 mg/dL (9.8-20.1); Calc. Creatinine Clearance 47 mL/min (70-130); Calcium 8.8 mg/dL (7.8-10.44); Carbon Dioxide 16 mmol/L (23-31); Chloride 104 mmol/L (98-107); Glucose 192 mg/dL (83-110); Potassium 3.9 mmol/L (3.5-5.1); Sodium 133 mmol/L (136-145)
[2020-12-12 16:32] LABS: Vancomycin, Trough 12.4 ug/mL
[2020-12-12] MEDS: Atorvastatin Calcium 40 MG TAB PO SCH (20:48)
[2020-12-13 03:42] LABS: #Basophils 0.1 thou/uL (0.0-0.2); #Eosinphils 0.5 thou/uL (0.0-0.7); #Lymphocytes 2.3 thou/uL (1.20-3.40); #Monocytes 0.7 thou/uL (0.11-0.59); #Neutrophils 3.6 thou/uL (1.40-6.50); %Basophils 0.7 % (0.0-1.0); %Lymphocytes 31.7 % (21.0-51.0); %Monocytes 10.3 % (0.0-10.0); %Neutrophils 50.2 % (42.0-75.0); Hemoglobin 11.4 g/dL (12.0-16.0); Mean Corpuscular HGB CONC 34.6 g/dL (32.0-36.0); Mean Corpuscular Hemoglobin 35.2 pg (27.0-31.0); Mean Platelet Volume 7.5 fL (7.4-10.4); Platelet Count 186 thou/uL (130-400); RBC Distribution Width 13.7 % (11.5-14.5); Red Blood Cell (RBC) Count 3.24 mill/uL (4.20-5.40); White Blood Cell (WBC) Count 7.1 thou/uL (4.8-10.8)
[2020-12-13 03:59] LABS: Anion Gap 15 mmol/L (10-20); BUN (Urea Nitrogen) 16 mg/dL (9.8-20.1); Calc. Creatinine Clearance 59 mL/min (70-130); Calcium 8.5 mg/dL (7.8-10.44); Carbon Dioxide 15 mmol/L (23-31); Chloride 110 mmol/L (98-107); Glucose 133 mg/dL (83-110); Potassium 3.6 mmol/L (3.5-5.1); Sodium 136 mmol/L (136-145)
[2020-12-13] MEDS: Levothyroxine Sodium 75 MCG TAB PO SCH (06:24)
[2020-12-13] MEDS: Nitroglycerin 2% Ointment 1 INCH/1 GM Packet TOP SCH ×2 (06:24→12:52)
[2020-12-13] MEDS: Cholecalciferol 1,000 UNITS (25 MCG) TAB PO SCH (09:52)
[2020-12-13] MEDS: Clopidogrel Bisulfate 75 MG TAB PO SCH (09:53)
[2020-12-13] MEDS: Cyanocobalamin (Vitamin B-12) 1,000 MCG TAB PO SCH (09:53)
[2020-12-13] MEDS: Fenofibrate 48 MG TAB PO SCH (09:53)
[2020-12-13] MEDS: Metoprolol Tartrate 25 MG TAB PO SCH (09:53)
[2020-12-13] MEDS: Famotidine 20 MG TAB PO SCH (09:54)
[2020-12-13] MEDS: Aspirin Chewable 81 MG TAB PO SCH (09:54)
[2020-12-13 13:23] VITALS: BP 113/54; TEMP 98.1
[2020-12-13] MEDS ORDERED: Loperamide HCl 1 MG/7.5 ML UDCUP PO PRN (15:24)
== END 2020-12-13 17:45 | disposition home health service (06) | DRG 246 ==
LOC: ERS 13:53 → 2NO 16:56
PROVIDERS: ADMIT Internal Medicine; ATTEND Internal Medicine
PROC: B2111ZZ Fluoroscopy of Multiple Coronary Arteries using Low Osmolar Contrast (ICD-10-PCS; principal; 2020-12-10)
PROC: 027034Z Dilation of Coronary Artery, One Artery with Drug-eluting Intraluminal Device, Percutaneous Approach (ICD-10-PCS; 2020-12-10)
PROC: B2151ZZ Fluoroscopy of Left Heart using Low Osmolar Contrast (ICD-10-PCS; 2020-12-10)
PROC: 4A023N7 Measurement of Cardiac Sampling and Pressure, Left Heart, Percutaneous Approach (ICD-10-PCS; 2020-12-10)
DX: I21.4 Non-ST elevation (NSTEMI) myocardial infarction (principal); I63.9 Cerebral infarction, unspecified; N17.9 Acute kidney failure, unspecified; R65.10 Systemic inflammatory response syndrome (SIRS) of non-infectious origin without acute organ dysfunction; G81.91 Hemiplegia, unspecified affecting right dominant side; E11.9 Type 2 diabetes mellitus without complications; E03.9 Hypothyroidism, unspecified; E78.5 Hyperlipidemia, unspecified; I25.10 Atherosclerotic heart disease of native coronary artery without angina pectoris; I25.5 Ischemic cardiomyopathy; Z88.1 Allergy status to other antibiotic agents; I10 Essential (primary) hypertension; Z88.2 Allergy status to sulfonamides; Z98.51 Tubal ligation status; Z79.82 Long term (current) use of aspirin; Z79.899 Other long term (current) drug therapy; Z79.890 Hormone replacement therapy; Z86.73 Personal history of transient ischemic attack (TIA), and cerebral infarction without residual deficits; Z20.822 Contact with and (suspected) exposure to COVID-19
CPT/HCPCS: 36415; 36416; 70450; 70544; 70551; 71045; 71275; 76770; 76942; 80048; 80053; 80061; 80202; 81001; 81003; 81015; 82140; 82306; 82553; 82570; 82607; 82746; 83036; 83690; 83735; 84300; 84443; 84484; 85025; 85347; 85379; 87040; 87086; 87635; 92928; 93005; 93010; 93306; 93458; 93798; 93880; 95712; 95819; 95957; 96365; 96372; 96375; 99152; 99153; C1874; C9600; J0153; J1200; J1644; J1650; J2060; J2250; J2270; J2405; J2543; J3010; J3370; J3475; J3490; Q9967; U0003; U0005

== ENCOUNTER 2021-01-22 13:25 | Emergency (ER) | payer MEDICARE ==
[2021-01-22 14:39] LABS: #Eosinphils 0.1 thou/uL (0.0-0.7); #Lymphocytes 1.4 thou/uL (1.20-3.40); #Monocytes 0.8 thou/uL (0.11-0.59); #Neutrophils 5.4 thou/uL (1.40-6.50); %Basophils 0.2 % (0.0-1.0); %Eosinophils 1.1 % (0.0-10.0); %Lymphocytes 17.8 % (21.0-51.0); %Monocytes 10.6 % (0.0-10.0); %Neutrophils 70.2 % (42.0-75.0); Hemoglobin 12.7 g/dL (12.0-16.0); Mean Corpuscular HGB CONC 32.2 g/dL (32.0-36.0); Mean Corpuscular Hemoglobin 31.4 pg (27.0-31.0); Mean Corpuscular Volume 97.6 fL (78.0-98.0); Mean Platelet Volume 7.1 fL (7.4-10.4); Platelet Count 389 thou/uL (130-400); RBC Distribution Width 13.3 % (11.5-14.5); Red Blood Cell (RBC) Count 4.03 mill/uL (4.20-5.40); White Blood Cell (WBC) Count 7.7 thou/uL (4.8-10.8)
[2021-01-22 15:03] LABS: ALT (SGPT) 13 U/L (8-55); AST (SGOT) 19 U/L (5-34); Albumin 3.9 g/dL (3.4-4.8); Alkaline Phosphatase 33 U/L (40-110); Anion Gap 14 mmol/L (10-20); BUN (Urea Nitrogen) 20 mg/dL (9.8-20.1); Bilirubin, Total 0.5 mg/dL (0.2-1.2); Calc. Creatinine Clearance 0 mL/min (70-130); Calcium 9.7 mg/dL (7.8-10.44); Carbon Dioxide 18 mmol/L (23-31); Chloride 103 mmol/L (98-107); Globulin 3.5 g/dL (2.4-3.5); Glucose 132 mg/dL (83-110); Lipase 25 U/L (8-78); Protein, Total 7.4 g/dL (5.8-8.1); Sodium 131 mmol/L (136-145)
[2021-01-22] MEDS ORDERED: Pantoprazole 40 MG VIAL ONE (15:09)
[2021-01-22] MEDS ORDERED: Metoclopramide HCl 10 MG/2 ML VIAL ONE (15:09)
[2021-01-22] MEDS ORDERED: Ondansetron PF 4 MG/2 ML Vial ONE (15:11)
[2021-01-22 16:42] LABS: Bilirubin Negative (Negative); Blood, Urine Trace (Negative); Clarity Clear (Clear); Glucose, Urine (Dipstick) Normal (Negative); Ketone, Urine Negative (Negative); Leukocyte 75 Leu/uL (Negative); Nitrite Negative (Negative); Protein, Urine (Dipstick) Negative (Neg-Trace); RBC/HPF 0-3 HPF (0-3); Specific Gravity, Urine 1.017 (1.002-1.036); Squamous Epithelial 0-3 HPF (0-3); Urobilinogen Normal mg/dL (Less than 2); WBC/HPF 0-3 HPF (0-3)
[2021-01-22 16:43] LABS: Bacteria/HPF Rare-Few HPF (None Seen)
== END 2021-01-22 17:14 | disposition home or self-care (01) ==
LOC: ERS 13:25
DX: R11.2 Nausea with vomiting, unspecified (principal); R19.7 Diarrhea, unspecified; E11.9 Type 2 diabetes mellitus without complications; I10 Essential (primary) hypertension; E03.9 Hypothyroidism, unspecified
CPT/HCPCS: 71045; 80053; 81003; 81015; 83690; 84484; 85025; 87086; 93005; 96365; 96375; C9113; J2405; J2765

== ENCOUNTER 2021-02-02 08:12 | Inpatient (IN) | payer MEDICARE ==
[2021-02-02 08:47] LABS: #Lymphocytes 1.2 thou/uL (1.20-3.40); #Monocytes 0.4 thou/uL (0.11-0.59); #Neutrophils 3.6 thou/uL (1.40-6.50); %Eosinophils 0.1 % (0.0-10.0); %Lymphocytes 23.3 % (21.0-51.0); %Monocytes 7.1 % (0.0-10.0); %Neutrophils 69.6 % (42.0-75.0); Hemoglobin 11.1 g/dL (12.0-16.0); Mean Corpuscular Hemoglobin 30.6 pg (27.0-31.0); Mean Corpuscular Volume 95.5 fL (78.0-98.0); Mean Platelet Volume 7.3 fL (7.4-10.4); Platelet Count 206 thou/uL (130-400); RBC Distribution Width 13.4 % (11.5-14.5); Red Blood Cell (RBC) Count 3.63 mill/uL (4.20-5.40); White Blood Cell (WBC) Count 5.2 thou/uL (4.8-10.8)
[2021-02-02 09:07] LABS: ALT (SGPT) 14 U/L (8-55); AST (SGOT) 37 U/L (5-34); Albumin 3.4 g/dL (3.4-4.8); Alkaline Phosphatase 33 U/L (40-110); Anion Gap 14 mmol/L (10-20); BUN (Urea Nitrogen) 11 mg/dL (9.8-20.1); Bilirubin, Total 0.4 mg/dL (0.2-1.2); Calc. Creatinine Clearance 0 mL/min (70-130); Calcium 8.1 mg/dL (7.8-10.44); Carbon Dioxide 18 mmol/L (23-31); Chloride 100 mmol/L (98-107); Globulin 3.3 g/dL (2.4-3.5); Glucose 135 mg/dL (83-110); Potassium 4.3 mmol/L (3.5-5.1); Protein, Total 6.7 g/dL (5.8-8.1); Sodium 128 mmol/L (136-145)
[2021-02-02] MEDS ORDERED: Acetaminophen 500 MG TAB ONE (09:22)
[2021-02-02] MEDS ORDERED: Dextrose 50% Abboject 50 ML SYRINGE SLOW IVP PRN ×2 (10:30→13:03)
[2021-02-02] MEDS ORDERED: Ondansetron PF 4 MG/2 ML Vial IVP PRN (10:30)
[2021-02-02] MEDS ORDERED: Dextrose 5% in Water 1,000 ML IV PRN ×2 (10:30→13:03)
[2021-02-02] MEDS ORDERED: Labetalol HCl 100 MG/20 ML VIAL SLOW IVP PRN (10:33)
[2021-02-02] MEDS ORDERED: traMADol HCl 50 MG TAB PO PRN (10:36)
[2021-02-02 11:08] LABS: Bilirubin Negative (Negative); Blood, Urine Negative (Negative); Clarity Clear (Clear); Glucose, Urine (Dipstick) Normal (Negative); Ketone, Urine Negative (Negative); Leukocyte 75 Leu/uL (Negative); Nitrite Negative (Negative); Protein, Urine (Dipstick) 50 mg/dL (Neg-Trace); RBC/HPF 0-3 HPF (0-3); Specific Gravity, Urine 1.012 (1.002-1.036); Squamous Epithelial 0-3 HPF (0-3); Urobilinogen Normal mg/dL (Less than 2); pH, Urine 5.5 (5.0-9.0)
[2021-02-02 11:09] LABS: Bacteria/HPF Rare-Few HPF (None Seen)
[2021-02-02 11:43] LABS: SARS-CoV-2 NAA Rapid Test DETECTED (NotDetected)
[2021-02-02 12:09] LABS: PTT 30.6 sec (22.9-36.1); Prothrombin Time 13.2 sec (12.0-14.7)
[2021-02-02] MEDS: Lactated Ringer's 1,000 ML IV SCH ×2 (13:00→21:23)
[2021-02-02] MEDS ORDERED: Haloperidol Lactate 5 MG/ML VIAL SLOW IVP SCH (14:00)
[2021-02-02] MEDS ORDERED: Lorazepam 2 MG/ML VIAL SLOW IVP SCH (16:00)
[2021-02-02] MEDS: Acetaminophen 325 MG TAB PO SCH ×2 (17:00→21:31)
[2021-02-02] MEDS ORDERED: Famotidine 20 MG TAB PO SCH (21:00)
[2021-02-02] MEDS: Carvedilol 3.125 MG TAB PO SCH (21:31)
[2021-02-02] MEDS: Atorvastatin Calcium 40 MG TAB PO SCH (21:31)
[2021-02-03] MEDS ORDERED: Acetaminophen 650 MG Suppository PR SCH (03:00)
[2021-02-03] MEDS: Acetaminophen 325 MG TAB PO SCH ×4 (03:14→20:13)
[2021-02-03 06:01] LABS: #Eosinphils 0.1 thou/uL (0.0-0.7); #Lymphocytes 1.6 thou/uL (1.20-3.40); #Monocytes 0.4 thou/uL (0.11-0.59); %Basophils 0.4 % (0.0-1.0); %Eosinophils 1.9 % (0.0-10.0); %Lymphocytes 25.8 % (21.0-51.0); %Monocytes 6.7 % (0.0-10.0); %Neutrophils 65.1 % (42.0-75.0); Hemoglobin 11.7 g/dL (12.0-16.0); Mean Corpuscular HGB CONC 32.5 g/dL (32.0-36.0); Mean Corpuscular Volume 95.4 fL (78.0-98.0); Mean Platelet Volume 7.3 fL (7.4-10.4); Platelet Count 207 thou/uL (130-400); RBC Distribution Width 13.4 % (11.5-14.5); Red Blood Cell (RBC) Count 3.76 mill/uL (4.20-5.40); White Blood Cell (WBC) Count 6.2 thou/uL (4.8-10.8)
[2021-02-03 06:23] LABS: Anion Gap 16 mmol/L (10-20); BUN (Urea Nitrogen) 7 mg/dL (9.8-20.1); Calc. Creatinine Clearance 57 mL/min (70-130); Calcium 8.2 mg/dL (7.8-10.44); Carbon Dioxide 17 mmol/L (23-31); Chloride 99 mmol/L (98-107); Glucose 112 mg/dL (83-110); Magnesium 1.1 mg/dL (1.6-2.6); Potassium 4.2 mmol/L (3.5-5.1); Sodium 128 mmol/L (136-145)
[2021-02-03 06:26] LABS: Phosphorus 1.7 mg/dL (2.3-4.7)
[2021-02-03] MEDS: Levothyroxine Sodium 75 MCG TAB PO SCH (07:48)
[2021-02-03 07:51] VITALS: BMI 30.3
[2021-02-03] MEDS ORDERED: Magnesium Sulfate 3 GM in Sodium Chloride 0.9% 100 ML IVPB SCH (08:15)
[2021-02-03] MEDS ORDERED: Sodium Phosphate 30 MMOL in Sodium Chloride 0.9% 250 ML 250 ML IVPB SCH (08:15)
[2021-02-03] MEDS: Cholecalciferol 1,000 UNITS (25 MCG) TAB PO SCH (08:27)
[2021-02-03] MEDS: Dexamethasone 4 mg/ml Vial SLOW IVP SCH (08:27)
[2021-02-03] MEDS: Carvedilol 3.125 MG TAB PO SCH ×2 (08:28→20:13)
[2021-02-03] MEDS: Famotidine 20 MG TAB PO SCH (08:28)
[2021-02-03 08:52] LABS: CKMB 1.1 ng/mL (0-6.6)
[2021-02-03 10:34] LABS: CKMB 2.2 ng/mL (0-6.6)
[2021-02-03] MEDS: Lactated Ringer's 1,000 ML IV SCH (15:05)
[2021-02-03 15:47] LABS: CKMB 2.7 ng/mL (0-6.6)
[2021-02-03] MEDS: Atorvastatin Calcium 40 MG TAB PO SCH (20:13)
[2021-02-03] MEDS: HumaLOG 300 UNITS/3 ML VIAL SC PRN (23:19)
[2021-02-04] MEDS: Acetaminophen 325 MG TAB PO SCH ×4 (02:05→20:02)
[2021-02-04 04:20] LABS: #Lymphocytes 0.6 thou/uL (1.20-3.40); #Monocytes 0.5 thou/uL (0.11-0.59); #Neutrophils 4.2 thou/uL (1.40-6.50); %Eosinophils 0.1 % (0.0-10.0); %Lymphocytes 11.9 % (21.0-51.0); %Monocytes 9.3 % (0.0-10.0); %Neutrophils 78.7 % (42.0-75.0); Mean Corpuscular HGB CONC 34.6 g/dL (32.0-36.0); Mean Corpuscular Hemoglobin 32.6 pg (27.0-31.0); Mean Platelet Volume 6.9 fL (7.4-10.4); Platelet Count 264 thou/uL (130-400); RBC Distribution Width 13.4 % (11.5-14.5); Red Blood Cell (RBC) Count 3.37 mill/uL (4.20-5.40); White Blood Cell (WBC) Count 5.4 thou/uL (4.8-10.8)
[2021-02-04] MEDS: Lactated Ringer's 1,000 ML IV SCH (04:23)
[2021-02-04 04:44] LABS: Anion Gap 16 mmol/L (10-20); BUN (Urea Nitrogen) 8 mg/dL (9.8-20.1); Calc. Creatinine Clearance 60 mL/min (70-130); Calcium 8.3 mg/dL (7.8-10.44); Carbon Dioxide 21 mmol/L (23-31); Chloride 99 mmol/L (98-107); Glucose 150 mg/dL (83-110); Magnesium 1.8 mg/dL (1.6-2.6); Potassium 3.9 mmol/L (3.5-5.1); Sodium 132 mmol/L (136-145)
[2021-02-04 04:50] LABS: Phosphorus 1.9 mg/dL (2.3-4.7)
[2021-02-04] MEDS: Levothyroxine Sodium 75 MCG TAB PO SCH (05:24)
[2021-02-04] MEDS ORDERED: Magnesium Sulfate 2 GM in Sodium Chloride 0.9% 100 ML IVPB SCH (09:00)
[2021-02-04] MEDS ORDERED: Potassium Phosphate 30 MMOL, Magnesium Sulfate 2 GM in Sodium Chloride 0.9% 250 ML IVPB SCH (09:00)
[2021-02-04] MEDS: Dexamethasone 4 mg/ml Vial SLOW IVP SCH (09:19)
[2021-02-04] MEDS: Famotidine 20 MG TAB PO SCH (09:19)
[2021-02-04] MEDS: Carvedilol 3.125 MG TAB PO SCH ×2 (09:19→20:02)
[2021-02-04] MEDS: Cholecalciferol 1,000 UNITS (25 MCG) TAB PO SCH (09:19)
[2021-02-04] MEDS: HumaLOG 300 UNITS/3 ML VIAL SC PRN ×3 (10:48→20:03)
[2021-02-04] MEDS: Atorvastatin Calcium 40 MG TAB PO SCH (20:02)
[2021-02-05] MEDS: Acetaminophen 325 MG TAB PO SCH ×3 (02:57→16:03)
[2021-02-05] MEDS: Levothyroxine Sodium 75 MCG TAB PO SCH (06:14)
[2021-02-05] MEDS: HumaLOG 300 UNITS/3 ML VIAL SC PRN (06:15)
[2021-02-05] MEDS ORDERED: Magnesium Sulfate 2 GM in Sodium Chloride 0.9% 100 ML IVPB SCH (07:15)
[2021-02-05] MEDS: Cholecalciferol 1,000 UNITS (25 MCG) TAB PO SCH (08:18)
[2021-02-05] MEDS: Famotidine 20 MG TAB PO SCH (08:18)
[2021-02-05] MEDS: Carvedilol 3.125 MG TAB PO SCH (08:18)
[2021-02-05] MEDS: Dexamethasone 4 mg/ml Vial SLOW IVP SCH (08:19)
[2021-02-05 16:29] VITALS: TEMP 97.1
== END 2021-02-05 18:55 | disposition home health service (06) | DRG 85 ==
LOC: ERS 08:12 → CCU 10:30 → IMCU/EMU 02-03 17:36
PROVIDERS: ADMIT Neurological Surgery; ATTEND Neurological Surgery
PROC: 8E0ZXY6 Isolation (ICD-10-PCS; principal; 2021-02-02)
DX: S06.1X1A Traumatic cerebral edema with loss of consciousness of 30 minutes or less, initial encounter (principal); G93.41 Metabolic encephalopathy; E87.1 Hypo-osmolality and hyponatremia; I50.22 Chronic systolic (congestive) heart failure; I13.0 Hypertensive heart and chronic kidney disease with heart failure and stage 1 through stage 4 chronic kidney disease, or unspecified chronic kidney disease; S06.5X1A Traumatic subdural hemorrhage with loss of consciousness of 30 minutes or less, initial encounter; N18.9 Chronic kidney disease, unspecified; Z77.22 Contact with and (suspected) exposure to environmental tobacco smoke (acute) (chronic); E11.22 Type 2 diabetes mellitus with diabetic chronic kidney disease; I25.10 Atherosclerotic heart disease of native coronary artery without angina pectoris; M32.9 Systemic lupus erythematosus, unspecified; S00.03XA Contusion of scalp, initial encounter; E03.9 Hypothyroidism, unspecified; I95.9 Hypotension, unspecified; R82.71 Bacteriuria; I25.5 Ischemic cardiomyopathy; E86.0 Dehydration; W18.30XA Fall on same level, unspecified, initial encounter; R40.2412 Glasgow coma scale score 13-15, at arrival to emergency department; E83.39 Other disorders of phosphorus metabolism; Z86.73 Personal history of transient ischemic attack (TIA), and cerebral infarction without residual deficits; Z28.21 Immunization not carried out because of patient refusal; Z98.51 Tubal ligation status; Z87.19 Personal history of other diseases of the digestive system; Z88.1 Allergy status to other antibiotic agents; Z88.2 Allergy status to sulfonamides; Z78.1 Physical restraint status; I25.2 Old myocardial infarction; Z95.5 Presence of coronary angioplasty implant and graft; Z79.899 Other long term (current) drug therapy; Z79.82 Long term (current) use of aspirin; Z79.02 Long term (current) use of antithrombotics/antiplatelets; Z79.84 Long term (current) use of oral hypoglycemic drugs; J84.89 Other specified interstitial pulmonary diseases; B94.8 Sequelae of other specified infectious and parasitic diseases
CPT/HCPCS: 0240U; 36415; 36416; 70450; 71045; 72125; 80048; 80053; 81003; 81015; 82553; 83605; 83735; 84100; 84484; 85025; 85610; 85730; 86850; 86900; 86901; 87040; 93005; 93010; J0744; J1100; J1630; J1815; J2060; J3475; J3490; J7030; J7050

== ENCOUNTER 2021-02-08 16:36 | Inpatient (IN) | payer MEDICARE ==
[2021-02-08] MEDS ORDERED: Fentanyl 100 MCG/2 ML VIAL ONE (17:21)
[2021-02-08 17:41] LABS: Hemoglobin 12.1 g/dL (12.0-16.0); Mean Corpuscular HGB CONC 31.9 g/dL (32.0-36.0); Mean Corpuscular Hemoglobin 30.4 pg (27.0-31.0); Mean Corpuscular Volume 95.4 fL (78.0-98.0); Mean Platelet Volume 6.8 fL (7.4-10.4); Platelet Count 454 thou/uL (130-400); RBC Distribution Width 13.8 % (11.5-14.5); Red Blood Cell (RBC) Count 3.96 mill/uL (4.20-5.40)
[2021-02-08 17:49] LABS: INR-International Normal Ratio 0.9; Prothrombin Time 12.6 sec (12.0-14.7)
[2021-02-08 17:56] LABS: ALT (SGPT) 29 U/L (8-55); AST (SGOT) 50 U/L (5-34); Albumin 3.5 g/dL (3.4-4.8); Alkaline Phosphatase 46 U/L (40-110); Anion Gap 16 mmol/L (10-20); BUN (Urea Nitrogen) 23 mg/dL (9.8-20.1); Bilirubin, Total 0.5 mg/dL (0.2-1.2); CK (CPK) 433 U/L (29-168); Calc. Creatinine Clearance 0 mL/min (70-130); Calcium 9.5 mg/dL (7.8-10.44); Carbon Dioxide 21 mmol/L (23-31); Chloride 100 mmol/L (98-107); Globulin 3.6 g/dL (2.4-3.5); Glucose 114 mg/dL (83-110); Lipase 74 U/L (8-78); Potassium 4.1 mmol/L (3.5-5.1); Protein, Total 7.1 g/dL (5.8-8.1); Sodium 133 mmol/L (136-145)
[2021-02-08 18:00] LABS: Band 30 % (5-11); Eosinophils 2 % (0-10); Lymphocytes 18 % (21-51); MDiff Complete? YES; Metamyelocyte 1 % (0-0); Monocytes 6 % (0-10); Myelocyte 1 % (0-0); Neutrophil 39 % (42-75); Platelet Morphology Comment Appears Increased; Reactive Lymphocytes 1 % (0-10); Reflex for Review?? YES
[2021-02-08] MEDS ORDERED: Aspirin Chewable 81 MG TAB ONE (18:16)
[2021-02-08 18:18] LABS: CKMB 4.1 ng/mL (0-6.6)
[2021-02-08 20:08] LABS: Bilirubin Negative (Negative); Blood, Urine Negative (Negative); Clarity Clear (Clear); Glucose, Urine (Dipstick) Normal (Negative); Ketone, Urine Negative (Negative); Leukocyte Negative Leu/uL (Negative); Nitrite Negative (Negative); Protein, Urine (Dipstick) Negative (Neg-Trace); Urobilinogen Normal mg/dL (Less than 2)
[2021-02-08] MEDS ORDERED: HYDROcodone/Acetaminophen 5/325 mg Tablet PO PRN (21:13)
[2021-02-08] MEDS ORDERED: Zolpidem Tartrate 5 MG TAB PO PRN (21:13)
[2021-02-08] MEDS ORDERED: Bisacodyl 10 MG SUPP PR PRN (21:13)
[2021-02-08] MEDS ORDERED: HumaLOG 300 UNITS/3 ML VIAL SC PRN ×2 (21:13)
[2021-02-08] MEDS ORDERED: Calcium Carbonate 500 MG ChewTAB PO PRN (21:13)
[2021-02-08] MEDS ORDERED: Guaifenesin DM 100-10/5 ML UDCUP PO PRN (21:13)
[2021-02-08] MEDS ORDERED: Senokot S 8.6-50 MG TAB PO PRN (21:13)
[2021-02-08] MEDS ORDERED: Acetaminophen 325 MG TAB PO PRN (21:13)
[2021-02-08] MEDS ORDERED: Dextrose 50% Abboject 50 ML SYRINGE SLOW IVP PRN (21:13)
[2021-02-08] MEDS ORDERED: Loperamide HCl 2 MG CAP PO PRN (21:13)
[2021-02-08] MEDS ORDERED: Dextrose 5% in Water 1,000 ML IV PRN (21:13)
[2021-02-08] MEDS ORDERED: Acetaminophen 500 MG TAB ONE ×2 (21:20→21:21)
[2021-02-08] MEDS ORDERED: Morphine 4 MG/ML VIAL ONE (21:48)
[2021-02-08 22:00] LABS: Troponin I 0.049 ng/mL (< 0.028)
[2021-02-09 06:40] LABS: ALT (SGPT) 27 U/L (8-55); AST (SGOT) 40 U/L (5-34); Albumin 3.2 g/dL (3.4-4.8); Alkaline Phosphatase 41 U/L (40-110); Anion Gap 15 mmol/L (10-20); BUN (Urea Nitrogen) 17 mg/dL (9.8-20.1); Bilirubin, Total 0.5 mg/dL (0.2-1.2); Calc. Creatinine Clearance 58 mL/min (70-130); Calcium 9.3 mg/dL (7.8-10.44); Carbon Dioxide 19 mmol/L (23-31); Chloride 103 mmol/L (98-107); Globulin 3.4 g/dL (2.4-3.5); Glucose 97 mg/dL (83-110); Potassium 4.1 mmol/L (3.5-5.1); Protein, Total 6.6 g/dL (5.8-8.1); Sodium 133 mmol/L (136-145)
[2021-02-09 06:47] LABS: Band 6 % (5-11); Eosinophils 6 % (0-10); Hemoglobin 11.8 g/dL (12.0-16.0); Lymphocytes 23 % (21-51); MDiff Complete? YES; Mean Corpuscular HGB CONC 31.6 g/dL (32.0-36.0); Mean Corpuscular Hemoglobin 30.4 pg (27.0-31.0); Mean Corpuscular Volume 96.3 fL (78.0-98.0); Mean Platelet Volume 6.9 fL (7.4-10.4); Monocytes 12 % (0-10); Neutrophil 49 % (42-75); Platelet Count 402 thou/uL (130-400); RBC Distribution Width 13.9 % (11.5-14.5); Reactive Lymphocytes 4 % (0-10); Red Blood Cell (RBC) Count 3.88 mill/uL (4.20-5.40); White Blood Cell (WBC) Count 7.9 thou/uL (4.8-10.8)
[2021-02-09] MEDS: Levothyroxine Sodium 75 MCG TAB PO SCH (07:04)
[2021-02-09] MEDS ORDERED: (Mecobalamin [B12 Active] 1,000 MCG Tab.Chew) PO SCH (09:00)
[2021-02-09] MEDS ORDERED: Enoxaparin Sodium 40 MG/0.4 ML SYRINGE SC SCH (09:00)
[2021-02-09] MEDS: Fenofibrate 48 MG TAB PO SCH (09:06)
[2021-02-09] MEDS: Cholecalciferol 1,000 UNITS (25 MCG) TAB PO SCH (09:06)
[2021-02-09] MEDS ORDERED: Aspirin Chewable 81 MG TAB ONE (09:19)
[2021-02-09] MEDS ORDERED: Famotidine 20 MG TAB ONE (09:19)
[2021-02-09] MEDS: Aspirin Chewable 81 MG TAB PO SCH (09:23)
[2021-02-09] MEDS: Famotidine 20 MG TAB PO SCH (09:23)
[2021-02-09] MEDS ORDERED: clonazePAM 0.5 MG TAB PO SCH (09:30)
[2021-02-09 09:54] VITALS: BMI 29.5
[2021-02-09] MEDS: Carvedilol 3.125 MG TAB PO SCH ×2 (11:10→16:36)
[2021-02-09] MEDS: Sodium Chloride 0.9% 1,000 ML IV SCH (11:10)
[2021-02-09] MEDS ORDERED: Atorvastatin Calcium 40 MG TAB PO SCH (21:00)
[2021-02-09] MEDS: clonazePAM 0.5 MG TAB PO PRN (21:05)
[2021-02-10 05:04] LABS: #Eosinphils 0.2 thou/uL (0.0-0.7); #Lymphocytes 1.2 thou/uL (1.20-3.40); #Monocytes 0.8 thou/uL (0.11-0.59); #Neutrophils 5.1 thou/uL (1.40-6.50); %Basophils 0.1 % (0.0-1.0); %Eosinophils 2.5 % (0.0-10.0); %Lymphocytes 16.4 % (21.0-51.0); %Monocytes 10.4 % (0.0-10.0); %Neutrophils 70.7 % (42.0-75.0); Hemoglobin 10.7 g/dL (12.0-16.0); Mean Corpuscular HGB CONC 32.9 g/dL (32.0-36.0); Mean Corpuscular Hemoglobin 31.2 pg (27.0-31.0); Mean Corpuscular Volume 95.1 fL (78.0-98.0); Mean Platelet Volume 6.5 fL (7.4-10.4); Platelet Count 472 thou/uL (130-400); Red Blood Cell (RBC) Count 3.44 mill/uL (4.20-5.40); White Blood Cell (WBC) Count 7.2 thou/uL (4.8-10.8)
[2021-02-10 05:22] LABS: Anion Gap 12 mmol/L (10-20); BUN (Urea Nitrogen) 8 mg/dL (9.8-20.1); Calc. Creatinine Clearance 58 mL/min (70-130); Calcium 9.2 mg/dL (7.8-10.44); Carbon Dioxide 22 mmol/L (23-31); Chloride 104 mmol/L (98-107); Glucose 137 mg/dL (83-110); Potassium 4.1 mmol/L (3.5-5.1); Sodium 134 mmol/L (136-145)
[2021-02-10] MEDS: Levothyroxine Sodium 75 MCG TAB PO SCH (05:46)
[2021-02-10] MEDS: Aspirin Chewable 81 MG TAB PO SCH (08:58)
[2021-02-10] MEDS: Carvedilol 3.125 MG TAB PO SCH ×2 (08:58→17:48)
[2021-02-10] MEDS: Fenofibrate 48 MG TAB PO SCH (08:58)
[2021-02-10] MEDS: Cholecalciferol 1,000 UNITS (25 MCG) TAB PO SCH (08:58)
[2021-02-10] MEDS: Famotidine 20 MG TAB PO SCH (08:58)
[2021-02-10] MEDS: Sodium Chloride 0.9% 1,000 ML IV SCH (08:58)
[2021-02-10] MEDS ORDERED: Magnevist 469MG/ML 20 ML VIAL ONE (09:02)
[2021-02-10] MEDS: clonazePAM 0.5 MG TAB PO PRN (12:54)
[2021-02-10 19:45] VITALS: BP 125/60; TEMP 98.1
== END 2021-02-10 19:32 | disposition home or self-care (01) | DRG 552 ==
LOC: ERS 16:36 → ERHOLD 20:36 → INTOOBSV 20:36 → 2SW 02-09 09:41 → OBSVTOIN 02-10 12:09
PROVIDERS: ADMIT Internal Medicine; ATTEND Internal Medicine
DX: M54.9 Dorsalgia, unspecified (principal); E87.1 Hypo-osmolality and hyponatremia; N17.9 Acute kidney failure, unspecified; I50.22 Chronic systolic (congestive) heart failure; D72.825 Bandemia; E11.9 Type 2 diabetes mellitus without complications; I25.10 Atherosclerotic heart disease of native coronary artery without angina pectoris; E03.9 Hypothyroidism, unspecified; R45.1 Restlessness and agitation; G89.29 Other chronic pain; I11.0 Hypertensive heart disease with heart failure; F41.9 Anxiety disorder, unspecified; E78.5 Hyperlipidemia, unspecified; Z88.1 Allergy status to other antibiotic agents; Z88.2 Allergy status to sulfonamides; Z79.899 Other long term (current) drug therapy; I25.2 Old myocardial infarction; Z98.51 Tubal ligation status; Z95.5 Presence of coronary angioplasty implant and graft; Z86.79 Personal history of other diseases of the circulatory system
CPT/HCPCS: 36415; 36416; 51701; 71045; 72158; 80048; 80053; 81003; 82550; 82553; 83690; 83880; 84443; 84484; 85025; 85060; 85610; 85730; 87040; 93005; 96365; 96366; 96375; A9579; G0378; J1956; J2270; J3010

== ENCOUNTER 2021-02-22 11:16 | Outpatient (CLI) | payer MEDICARE | END 2021-02-22 11:17 | disposition home or self-care (01) | LOC: BICCT 11:16 | PROVIDERS: ATTEND Neurological Surgery | DX: I62.00 Nontraumatic subdural hemorrhage, unspecified (principal) | CPT/HCPCS: 70450 ==

== ENCOUNTER 2021-03-08 17:30 | Inpatient (IN) | payer MEDICARE ==
[2021-03-08 17:58] LABS: #Basophils 0.1 thou/uL (0.0-0.2); #Eosinphils 0.2 thou/uL (0.0-0.7); #Lymphocytes 2.5 thou/uL (1.20-3.40); #Monocytes 0.8 thou/uL (0.11-0.59); #Neutrophils 3.6 thou/uL (1.40-6.50); %Basophils 0.8 % (0.0-1.0); %Eosinophils 2.8 % (0.0-10.0); %Lymphocytes 35.1 % (21.0-51.0); %Monocytes 11.5 % (0.0-10.0); %Neutrophils 49.8 % (42.0-75.0); Hemoglobin 10.9 g/dL (12.0-16.0); Mean Corpuscular HGB CONC 32.9 g/dL (32.0-36.0); Mean Corpuscular Volume 97.2 fL (78.0-98.0); Mean Platelet Volume 7.2 fL (7.4-10.4); Platelet Count 324 thou/uL (130-400); RBC Distribution Width 14.5 % (11.5-14.5); Red Blood Cell (RBC) Count 3.41 mill/uL (4.20-5.40); White Blood Cell (WBC) Count 7.2 thou/uL (4.8-10.8)
[2021-03-08 18:10] LABS: PTT 29.6 sec (22.9-36.1); Prothrombin Time 13.3 sec (12.0-14.7)
[2021-03-08 18:18] LABS: ALT (SGPT) 7 U/L (8-55); AST (SGOT) 20 U/L (5-34); Albumin 3.6 g/dL (3.4-4.8); Alkaline Phosphatase 48 U/L (40-110); Anion Gap 17 mmol/L (10-20); BUN (Urea Nitrogen) 11 mg/dL (9.8-20.1); Bilirubin, Total 0.3 mg/dL (0.2-1.2); CK (CPK) 60 U/L (29-168); Calc. Creatinine Clearance 0 mL/min (70-130); Calcium 9.6 mg/dL (7.8-10.44); Carbon Dioxide 15 mmol/L (23-31); Chloride 106 mmol/L (98-107); Globulin 3.4 g/dL (2.4-3.5); Glucose 110 mg/dL (83-110); Potassium 4.8 mmol/L (3.5-5.1); Sodium 133 mmol/L (136-145)
[2021-03-08] MEDS ORDERED: HYDROcodone/Acetaminophen 5/325 mg Tablet PO PRN (20:11)
[2021-03-08] MEDS ORDERED: Zolpidem Tartrate 5 MG TAB PO PRN (20:11)
[2021-03-08] MEDS ORDERED: Ondansetron PF 4 MG/2 ML Vial IVP PRN (20:11)
[2021-03-08] MEDS ORDERED: Loperamide HCl 2 MG CAP PO PRN (20:11)
[2021-03-08] MEDS ORDERED: hydrALAZINE 20 MG/ML VIAL SLOW IVP PRN (20:13)
[2021-03-08] MEDS ORDERED: Morphine 2 MG/ML VIAL SLOW IVP PRN (20:13)
[2021-03-08] MEDS ORDERED: Lactated Ringer's 1,000 ML IV SCH (20:15)
[2021-03-08] MEDS: Lactated Ringer's 1,000 ML IV SCH ×2 (21:07→22:44)
[2021-03-08] MEDS: Sodium Bicarbonate Tab 325 MG TAB PO SCH (22:47)
[2021-03-08] MEDS: metFORMIN 500 MG TAB PO SCH (22:47)
[2021-03-08] MEDS: Alogliptin 6.25 MG TAB PO SCH (22:50)
[2021-03-08 23:12] VITALS: BMI 28.2
[2021-03-09 00:27] LABS: SARS-CoV-2 NAA Rapid Test DETECTED (NotDetected)
[2021-03-09] MEDS: Acetaminophen 325 MG TAB PO PRN ×4 (01:06→22:27)
[2021-03-09 05:45] LABS: ALT (SGPT) Less than 7 U/L (8-55); AST (SGOT) 13 U/L (5-34); Albumin 3.3 g/dL (3.4-4.8); Alkaline Phosphatase 49 U/L (40-110); Anion Gap 12 mmol/L (10-20); BUN (Urea Nitrogen) 8 mg/dL (9.8-20.1); Band 3 % (5-11); Bilirubin, Total 0.3 mg/dL (0.2-1.2); Calc. Creatinine Clearance 65 mL/min (70-130); Calcium 9.5 mg/dL (7.8-10.44); Carbon Dioxide 21 mmol/L (23-31); Chloride 104 mmol/L (98-107); Eosinophils 3 % (0-10); Globulin 3.3 g/dL (2.4-3.5); Glucose 87 mg/dL (83-110); Hemoglobin 11.1 g/dL (12.0-16.0); Lymphocytes 27 % (21-51); MDiff Complete? YES; Mean Corpuscular HGB CONC 32.9 g/dL (32.0-36.0); Mean Corpuscular Hemoglobin 31.6 pg (27.0-31.0); Mean Corpuscular Volume 96.1 fL (78.0-98.0); Mean Platelet Volume 7.1 fL (7.4-10.4); Monocytes 12 % (0-10); Neutrophil 54 % (42-75); Platelet Count 343 thou/uL (130-400); Potassium 4.1 mmol/L (3.5-5.1); Protein, Total 6.6 g/dL (5.8-8.1); RBC Distribution Width 14.4 % (11.5-14.5); Reactive Lymphocytes 1 % (0-10); Red Blood Cell (RBC) Count 3.52 mill/uL (4.20-5.40); Sodium 133 mmol/L (136-145); White Blood Cell (WBC) Count 5.6 thou/uL (4.8-10.8)
[2021-03-09] MEDS: Levothyroxine Sodium 75 MCG TAB PO SCH (06:04)
[2021-03-09] MEDS: Alogliptin 6.25 MG TAB PO SCH ×2 (09:14→22:44)
[2021-03-09] MEDS: Sodium Bicarbonate Tab 325 MG TAB PO SCH ×3 (09:15→22:44)
[2021-03-09] MEDS: metFORMIN 500 MG TAB PO SCH ×2 (09:15→22:31)
[2021-03-09] MEDS ORDERED: levETIRAcetam 500 MG TAB PO SCH (15:30)
[2021-03-09] MEDS: levETIRAcetam 500 MG TAB PO SCH (22:31)
[2021-03-10] MEDS: Levothyroxine Sodium 75 MCG TAB PO SCH (06:10)
[2021-03-10] MEDS: Acetaminophen 325 MG TAB PO PRN ×4 (06:10→20:19)
[2021-03-10] MEDS: Sodium Bicarbonate Tab 325 MG TAB PO SCH ×3 (09:42→20:19)
[2021-03-10] MEDS: levETIRAcetam 500 MG TAB PO SCH ×2 (09:43→20:17)
[2021-03-10] MEDS: Alogliptin 6.25 MG TAB PO SCH ×2 (09:43→20:18)
[2021-03-10] MEDS: metFORMIN 500 MG TAB PO SCH (09:43)
[2021-03-10] MEDS: Carvedilol 3.125 MG TAB PO SCH (20:19)
[2021-03-10 22:47] LABS: Anion Gap 15 mmol/L (10-20); BUN (Urea Nitrogen) 10 mg/dL (9.8-20.1); Calc. Creatinine Clearance 61 mL/min (70-130); Calcium 9.4 mg/dL (7.8-10.44); Carbon Dioxide 25 mmol/L (23-31); Chloride 101 mmol/L (98-107); Glucose 122 mg/dL (83-110); Potassium 4.5 mmol/L (3.5-5.1); Sodium 136 mmol/L (136-145)
[2021-03-11] MEDS: Acetaminophen 325 MG TAB PO PRN ×5 (01:11→21:13)
[2021-03-11] MEDS: Levothyroxine Sodium 75 MCG TAB PO SCH (06:03)
[2021-03-11] MEDS: Alogliptin 6.25 MG TAB PO SCH ×2 (08:11→21:14)
[2021-03-11] MEDS: levETIRAcetam 500 MG TAB PO SCH ×2 (08:12→21:13)
[2021-03-11] MEDS: Carvedilol 3.125 MG TAB PO SCH ×2 (08:12→21:14)
[2021-03-11] MEDS: Sodium Bicarbonate Tab 325 MG TAB PO SCH ×3 (08:12→21:12)
[2021-03-11] MEDS ORDERED: Magnesium Sulfate 2 GM in Sodium Chloride 0.9% 100 ML IVPB SCH (08:15)
[2021-03-11] MEDS ORDERED: Magnesium 2 GM/50 ML 2 GM in Premix Bag 1 BAG IVPB SCH (08:30)
[2021-03-11] MEDS ORDERED: ALPRAZolam 0.25 MG TAB PO PRN (18:40)
[2021-03-12] MEDS: Levothyroxine Sodium 75 MCG TAB PO SCH (05:35)
[2021-03-12] MEDS: Alogliptin 6.25 MG TAB PO SCH ×2 (09:26→22:04)
[2021-03-12] MEDS: Sodium Bicarbonate Tab 325 MG TAB PO SCH ×3 (09:26→22:02)
[2021-03-12] MEDS: Carvedilol 3.125 MG TAB PO SCH ×2 (09:27→22:03)
[2021-03-12] MEDS: levETIRAcetam 500 MG TAB PO SCH ×2 (09:27→22:03)
[2021-03-12] MEDS: HumaLOG 300 UNITS/3 ML VIAL SC PRN ×2 (11:11→17:12)
[2021-03-12] MEDS: Acetaminophen 325 MG TAB PO PRN (22:01)
[2021-03-13] MEDS: Acetaminophen 325 MG TAB PO PRN ×2 (04:44→11:25)
[2021-03-13] MEDS: Levothyroxine Sodium 75 MCG TAB PO SCH (04:44)
[2021-03-13] MEDS: Sodium Bicarbonate Tab 325 MG TAB PO SCH ×2 (09:01→16:05)
[2021-03-13] MEDS: Alogliptin 6.25 MG TAB PO SCH (09:01)
[2021-03-13] MEDS: levETIRAcetam 500 MG TAB PO SCH (09:01)
[2021-03-13] MEDS: Carvedilol 3.125 MG TAB PO SCH (09:01)
[2021-03-13] MEDS: HumaLOG 300 UNITS/3 ML VIAL SC PRN (11:23)
[2021-03-13 15:58] VITALS: BP 118/55; TEMP 97.6
== END 2021-03-13 17:33 | disposition home health service (06) | DRG 69 ==
LOC: ERS 17:30 → ERHOLD 19:14 → 2SE 22:33 → 2SW 03-09 03:29 → 2SE 03-09 18:33 → OBSVTOIN 03-11 13:44
PROVIDERS: ADMIT Internal Medicine; ATTEND Internal Medicine
DX: G45.9 Transient cerebral ischemic attack, unspecified (principal); U07.1 COVID-19; I50.22 Chronic systolic (congestive) heart failure; E87.2 Acidosis; I47.2 Ventricular tachycardia; E11.9 Type 2 diabetes mellitus without complications; I11.0 Hypertensive heart disease with heart failure; I25.10 Atherosclerotic heart disease of native coronary artery without angina pectoris; E78.5 Hyperlipidemia, unspecified; R19.7 Diarrhea, unspecified; I95.9 Hypotension, unspecified; Z95.5 Presence of coronary angioplasty implant and graft; Z88.2 Allergy status to sulfonamides; Z88.1 Allergy status to other antibiotic agents; Z79.899 Other long term (current) drug therapy; Z98.51 Tubal ligation status; Z98.890 Other specified postprocedural states; Z86.79 Personal history of other diseases of the circulatory system; I25.2 Old myocardial infarction
CPT/HCPCS: 36415; 36416; 70450; 80048; 80053; 82550; 83735; 84484; 85007; 85025; 85027; 85610; 85730; 87324; 87449; 93005; 93306; 93880; 96365; G0378; J1815; J3475; U0002; U0005

== ENCOUNTER 2021-03-19 12:34 | Outpatient (CLI) | payer MEDICARE | END 2021-03-19 12:35 | disposition home or self-care (01) | LOC: BICCT 12:34 | PROVIDERS: ATTEND Neurological Surgery | DX: I62.00 Nontraumatic subdural hemorrhage, unspecified (principal) | CPT/HCPCS: 70450 ==

== ENCOUNTER 2023-05-12 15:55 | Emergency (ER) | payer MEDICARE, OTHER ==
[2023-05-12] MEDS ORDERED: Cefepime 2 GM VIAL ONE (16:38)
[2023-05-12 16:51] LABS: Bacteria/HPF None Seen HPF (None Seen); Bilirubin Negative (Negative); Blood, Urine Negative (Negative); CAUTI Indications for Culture Alt mental st,lethar; Clarity Clear (Clear); Glucose, Urine (Dipstick) Normal (Negative); Ketone, Urine Negative (Negative); Leukocyte Negative Leu/uL (Negative); Nitrite Negative (Negative); Protein, Urine (Dipstick) 10 mg/dL (Neg-Trace); RBC/HPF 0-3 HPF (0-3); Specific Gravity, Urine 1.015 (1.002-1.036); Squamous Epithelial None Seen HPF (0-3); Urobilinogen Normal mg/dL (Less than 2); WBC/HPF 0-3 HPF (0-3)
[2023-05-12 16:53] LABS: Urine Culture Reflex No No
[2023-05-12 16:56] LABS: #Eosinphils 0.2 thou/uL (0.0-0.7); #Monocytes 1.2 thou/uL (0.11-0.59); #Neutrophils 6.4 thou/uL (1.40-6.50); %Basophils 0.4 % (0.0-1.0); %Eosinophils 2.4 % (0.0-10.0); %Monocytes 13.6 % (0.0-10.0); %Neutrophils 72.2 % (42.0-75.0); Hematocrit 31.6 % (36.0-47.0); Hemoglobin 10.1 g/dL (12.0-16.0); Mean Corpuscular Volume 87.5 fl (78.0-98.0); Mean Platelet Volume 9.7 fL (7.4-10.4); Platelet Count 360 10x3/uL (130-400); RBC Distribution Width 15.6 % (11.5-14.5); Red Blood Cell (RBC) Count 3.61 mill/uL (4.20-5.40); White Blood Cell (WBC) Count 8.9 10x3/uL (4.8-10.8)
[2023-05-12 17:22] LABS: SARS-CoV-2 NAA Rapid Test DETECTED (NotDetected)
[2023-05-12 17:25] LABS: ALT (SGPT) 10 U/L (8-55); AST (SGOT) 21 U/L (5-34); Alkaline Phosphatase 27 U/L (40-110); Anion Gap 14 mmol/L (10-20); BUN (Urea Nitrogen) 17 mg/dL (9.8-20.1); Bilirubin, Total 0.4 mg/dL (0.2-1.2); CK (CPK) 73 U/L (29-168); Calc. Creatinine Clearance 0 mL/min (70-130); Calcium 9.8 mg/dL (7.8-10.44); Carbon Dioxide 19 mmol/L (23-31); Chloride 104 mmol/L (98-107); Estimated GFR 41; Globulin 3.3 g/dL (2.4-3.5); Glucose 118 mg/dL (83-110); Potassium 3.9 mmol/L (3.5-5.1); Protein, Total 7.3 g/dL (5.8-8.1); Sodium 133 mmol/L (136-145)
== END 2023-05-12 18:53 | disposition home or self-care (01) ==
LOC: ERS 15:55
DX: U07.1 COVID-19 (principal); E11.9 Type 2 diabetes mellitus without complications; I10 Essential (primary) hypertension; E03.9 Hypothyroidism, unspecified
CPT/HCPCS: 0240U; 70450; 71045; 80053; 81001; 82550; 83605; 83880; 84484; 85025; 87040; 87086; 93005; 36415; 96365; J0692

== ENCOUNTER 2024-04-09 21:25 | Emergency (ER) | payer OTHER ==
[2024-04-09 22:11] LABS: #Basophils 0.05 10x3/uL (0.0-0.2); %Basophils 0.6 % (0.0-1.0); %Eosinophils 8.8 % (0.0-10.0); %Lymphocytes 36.4 % (21.0-51.0); %Monocytes 9.4 % (0.0-10.0); %Neutrophils 44.7 % (42.0-75.0); Hematocrit 41.2 % (36.0-47.0); Hemoglobin 13.7 g/dL (12.0-16.0); Mean Corpuscular HGB CONC 33.3 g/dL (32.0-36.0); Mean Corpuscular Hemoglobin 29.3 pg (27.0-31.0); Mean Corpuscular Volume 88.2 fL (78.0-98.0); Mean Platelet Volume 9.8 fL (7.4-10.4); Platelet Count 287 10x3/uL (130-400); RBC Distribution Width 15.2 % (11.5-14.5); Red Blood Cell (RBC) Count 4.67 mill/uL (4.20-5.40)
[2024-04-09 22:37] LABS: Troponin I Less than 0.010 ng/mL (< 0.028)
[2024-04-09 22:53] LABS: ALT (SGPT) 11 U/L (8-55); AST (SGOT) 18 U/L (5-34); Albumin 3.9 g/dL (3.4-4.8); Alkaline Phosphatase 36 U/L (40-110); Anion Gap 16 mmol/L (10-20); BUN (Urea Nitrogen) 15 mg/dL (9.8-20.1); Bilirubin, Total 0.3 mg/dL (0.2-1.2); Calc. Creatinine Clearance 0 mL/min (70-130); Calcium 10.3 mg/dL (7.8-10.44); Carbon Dioxide 18 mmol/L (23-31); Chloride 104 mmol/L (98-107); Estimated GFR 67; Globulin 3.5 g/dL (2.4-3.5); Glucose 154 mg/dL (83-110); Lipase 60 U/L (8-78); Magnesium 1.5 mg/dL (1.6-2.6); Potassium 4.3 mmol/L (3.5-5.1); Protein, Total 7.4 g/dL (5.8-8.1); Sodium 134 mmol/L (136-145)
[2024-04-09] MEDS ORDERED: Magnesium 2 GM/50 ML BAG (IN WATER) ONE (23:19)
== END 2024-04-10 00:24 | disposition home or self-care (01) ==
LOC: ERS 21:25
DX: I10 Essential (primary) hypertension (principal); E11.9 Type 2 diabetes mellitus without complications
CPT/HCPCS: 71045; 80053; 83690; 83735; 83880; 84484; 85025; 93005; J3475; 36415; 96365

== ENCOUNTER 2025-09-02 19:58 | Emergency (ER) | payer OTHER ==
[2025-09-02 20:55] LABS: #Basophils 0.04 10x3/uL (0.0-0.2); #Eosinophils 0.50 10x3/uL (0.0-0.7); #Monocytes 0.50 10x3/uL (0.11-0.59); #Neutrophils 2.75 10x3/uL (1.40-6.50); %Basophils 0.6 % (0.0-1.0); %Eosinophils 7.9 % (0.0-10.0); %Lymphocytes 39.9 % (21.0-51.0); %Monocytes 7.9 % (0.0-10.0); %Neutrophils 43.4 % (42.0-75.0); Hematocrit 45.9 % (36.0-47.0); Hemoglobin 15.2 g/dL (12.0-16.0); Mean Corpuscular Hemoglobin 30.4 pg (27.0-31.0); Mean Corpuscular Volume 91.8 fL (78.0-98.0); Platelet Count 240 10x3/uL (130-400); Red Blood Cell (RBC) Count 5.00 mill/uL (4.20-5.40); White Blood Cell (WBC) Count 6.34 10x3/uL (4.8-10.8)
[2025-09-02 22:29] LABS: ALT (SGPT) 12 U/L (Less than 34); AST (SGOT) 23 U/L (11-34); Albumin 4.2 g/dL (3.1-4.5); Alkaline Phosphatase 41 U/L (40-110); Anion Gap 14 mmol/L (10-20); BUN (Urea Nitrogen) 13 mg/dL (9.8-20.1); Bilirubin, Total 0.3 mg/dL (0.3-1.2); Calc. Creatinine Clearance 0 mL/min (70-130); Calcium 10.2 mg/dL (7.8-10.44); Carbon Dioxide 22 mmol/L (23-31); Chloride 104 mmol/L (98-107); Globulin 3.8 g/dL (2.4-3.5); Glucose 134 mg/dL (83-110); Lipase 53 U/L (8-78); Magnesium 1.5 mg/dL (1.6-2.6); Potassium 4.1 mmol/L (3.5-5.1); Sodium 136 mmol/L (136-145)
[2025-09-03] MEDS ORDERED: Magnesium 2 GM/50 ML BAG (IN WATER) ONE (00:01)
== END 2025-09-03 02:05 | disposition home or self-care (01) ==
LOC: ERS 19:58
DX: R07.9 Chest pain, unspecified (principal); R00.2 Palpitations; E11.9 Type 2 diabetes mellitus without complications; I10 Essential (primary) hypertension; I25.2 Old myocardial infarction
CPT/HCPCS: 71045; 80053; 83690; 83735; 84484 ×2; 85025; 93005; J3475; 96365; 96366